=== PATIENT | male | born 1940 | race Caucasian/White ===

== ENCOUNTER 2017-09-30 11:50 | Emergency (ER) | payer MEDICARE ==
[2016-05-07 11:05] VITALS: BMI 28.8
[~2017-09-30 11:50] MED LIST: CARAFATE1 G PO; EXELON1 PATCH .1 TRANSDERM; FLOMAX0.4 MG PO; HYDROCODONE-APA1 TAB PO; LIPITOR10 MG PO; MOBIC7.5 MG PO; PAXIL20 MG PO; PHENERGAN25 M1 PO; PROTONIX40 MG PO; RESTORIL15 MG PO; SYNTHROID100 MCG PO
[2017-09-30 12:32] LABS: BASOPHILS 0.4 % (0-2); EOSINOPHILS 1.9 % (0-7); HEMATOCRIT 41.9 % (42.0-54.0); HEMOGLOBIN 14.4 g/dL (13.5-17.5); IMMATURE GRANULOCYTES 0.2 % (0-5); LYMPHOCYTES 22.8 % (15-50); MCH 32.3 pg (26.0-34.0); MCHC 34.4 g/dL (31.0-37.0); MCV 93.9 fL (80.0-100.0); MEAN PLATELET VOLUME 9.2 fL (7.4-10.4); MONOCYTES 9.3 % (2-11); NEUTROPHILS 65.4 % (40-80); RBC 4.46 10x6/uL (4.20-6.10); WBC 4.7 10x3/uL (4.8-10.8)
[2017-09-30 12:49] LABS: PLATELET COUNT 163 10x3/uL (130-400)
[2017-09-30 12:54] LABS: ALBUMIN 3.2 g/dL (3.4-5.0); ALKALINE PHOSPHATASE 66 U/L (46-116); ALT (SGPT) 33 U/L (10-68); BILIRUBIN - TOTAL 0.28 mg/dL (0.2-1.3); CALC OSMOLALITY 275 mosm/kg (275-300); CALCIUM 8.6 mg/dL (8.5-10.1); CARBON DIOXIDE 28.7 mmol/L (21.0-32.0); CHLORIDE - SERUM 104 mmol/L (98-107); CREATININE - SERUM 1.1 mg/dL (0.6-1.3); GLUCOSE 103 mg/dL (74-106); POTASSIUM - SERUM 4.7 mmol/L (3.5-5.1); PROTEIN - SERUM 6.7 g/dL (6.4-8.2); SODIUM 137 mmol/L (136-145); UREA NITROGEN 17 mg/dL (7-18); eGFR NON AFRICAN AMERICAN 69 mL/min (90-120)
[2017-09-30 13:01] LABS: CHOL - HDL RATIO 3.6 ratio (2.3-4.9); CHOLESTEROL, TOTAL 201 mg/dL (0-200); CREATINE KINASE 55 UL (21-232); HDL CHOLESTEROL 56 mg/dL (32-96); LDL CHOLESTEROL 100 mg/dL (0-100); LDL-HDL RATIO 1.8 ratio (1.5-3.5); TRIGLYCERIDE 228 mg/dL (30-200); TROPONIN-I < 0.017 ng/mL (0.000-0.060)
[2017-09-30 13:23] LABS: CKMB 0.7 U/L (0.0-3.6)
== END 2017-09-30 14:29 | disposition home or self-care (01) ==
LOC: D.ER 11:50
PROVIDERS: Emergency Medicine
DX: R68.84 Jaw pain (principal); F41.9 Anxiety disorder, unspecified; R00.1 Bradycardia, unspecified; I45.10 Unspecified right bundle-branch block

== ENCOUNTER 2017-10-06 06:21 | Outpatient (CLI) | payer MEDICARE ==
--- NOTE | ~2017-10-06 | HEMODYNAMI ---
PATIENT:NOVA RODRIGUEZ MEDICAL RECORD: [id number] : 42 LOCATION:[facility] ADMISSION DATE: 10/06/17 Generatedon:10/06/20179:03 Patient name: NOVA RODRIGUEZ Patient #: [id number] SSN: : 1940 Date of study: 10/06/2017 Page: Of Hemodynamic Procedure Report Patient Data Patient Demographics Procedure consent was obtained First Name: NOVA Gender: Male Last Name: MICHAEL : 1940 [facility] Initial: OSCAR Age: 77 year(s) Patient #: [id number] Race: Unknown Additional ID: [id number] Contact details Address: [address] [place] [address] State: [place] City: [place] Zip code: [address] Past Medical History Allergies: No known allergies Admission Admission Data Admission Date: 10/06/2017 Admission Time: 6:21 Procedure Procedure Types Cath Procedure Diagnostic Procedure LHC LHC w/Coronaries Miscellaneous Procedures Moderate Sedation up to 15 minutes Peripheral Cath Diagnostic Procedure Cath Peripheral Four Vessel Arteriogram Procedure Description Procedure Date Procedure Date: 10/06/2017 Procedure Start Time: 8:42 Procedure End Time: 9:02 Procedure Staff Name Function Ronny Carney MD Performing Physician Mena Hernandez RT Monitor Vahid Arthur RN Nurse Marciano Elias RT Scrub Procedure Data Cath Procedure Fluoroscopy Diagnostic fluoroscopy Total fluoroscopy Time: 3.6 time: 3.6 min min Diagnostic fluoroscopy Total fluoroscopy dose: 598 dose: 598 mGy mGy Contrast Material Contrast Material Type Amount (ml) Isovue 300 131 Entry Location Entry Primary Successful Side Size Upsize Upsize Entry Closure Succes sful Closure Location (Fr) 1 (Fr) 2 (Fr) Remarks Device Remarks Femoral Right 5 Fr Exoseal artery Estimated blood loss: 5 ml Diagnostic catheters Device Type Used For End Catheter Placement MULTIPACK JL 4.0 5Fr Left Coronary catheter Angiography MULTIPACK 3DRC 5Fr Right Coronary catheter Angiography MULTIPACK Pigtail 5 Fr LV Angiography catheter DIAGNOSTIC JB3 4Fr Cervical carotid catheter (331101) (common) arteriography Procedure Complications No complications Procedure Medications Medication Administration Route Dosage Oxygen NC 2 l/min Heparin Flush Bag added to field 2 bags (1000units/500ml NS) 0.9% NaCl I.V. 100 ml/hr Fentanyl I.V. 50 mcg Versed I.V. 1 mg Fentanyl I.V. 50 mcg Versed I.V. 1 mg Fentanyl I.V. 50 mcg Fentanyl I.V. 50 mcg Hemodynamics Rest Heart Rate: 52 (bpm) Pressure Samples Time Site Value (mmHg) Purpose Heart Use Rate(bpm) 8:44 AO 110/51(74) Snapshot 53 8:49 LV 115/2,8 EDP 55 8:50 AO 117/49(76) Pullback 55 8:50 LV 115/-10,6 Pullback 55 Gradients Valve Time Site 1 Site 2 Mean SEP/DFP Peak To Heart Use (mmHg) (sec/min) Peak Rate (mmHg) (bpm) Aortic 8:50 LV AO 0 13 0 55 115/-10,6 117/49(76) Calculations Valve P-P Mean Valve Index Valve Source Name Gradient Area Flow (cm2) Aortic 0 0 0 0 Snapshots Pre Cath Intra NCS Post Cath Vital Signs Time Heart Resp SPO2 etCO2 NIBP (mmHg) Rhythm Pain Sedation Rate (ipm) (%) (mmHg) Status Level (bpm) 8:25:46 54 19 96 0 165/74(124) NSR 0 (11) 10(A) , No pain 8:30:07 51 16 99 35.7 146/72(125) NSR 0 (11) 10(A) , No pain 8:35:12 50 15 97 37.2 131/68(112) NSR 0 (11) 10(A) , No pain 8:40:25 51 16 97 19.3 117/65(84) NSR 0 (11) 10(A) , No pain 8:44:35 53 16 96 16.4 121/66(92) NSR 0 (11) 10(A) , No pain 8:48:47 54 16 96 13.4 120/66(97) NSR 0 (11) 10(A) , No pain 8:52:59 56 16 95 0 122/65(101) NSR 0 (11) 10(A) , No pain 8:57:13 60 17 95 16.4 112/62(84) NSR 0 (11) 10(A) , No pain 9:01:21 58 16 96 17.9 113/50(87) NSR 0 (11) 10(A) , No pain Medications Time Medication Route Dose Verified Delivered Reason Notes Effect iveness by by 8:26:55 Oxygen NC 2 Ronny Vahid Per l/min Rommel Arthur RN physician 8:27:02 Heparin Flush added 2 Ronny Vahid used for Bag to bags Rommel Arthur RN procedure (1000units/500ml field NS) 8:27:11 0.9% NaCl I.V. 100 Ronny Vahid Per ml/hr Rommel Arthur RN physician 8:42:02 Fentanyl I.V. 50 Ronny Vahid for mcg Rommel Arthur RN sedation 8:42:08 Versed I.V. 1 mg Ronny Vahid for Rommel Arthur RN sedation 8:44:40 Fentanyl I.V. 50 Ronny Vahid for mcg Rommel Arthur RN sedation 8:44:46 Versed I.V. 1 mg Ronny Vahid for Rommel Arthur RN sedation 8:47:49 Fentanyl I.V. 50 Ronny Vahid for mcg Rommel Arthur RN sedation 8:50:34 Fentanyl I.V. 50 Ronny Vahid for mcg Rommel Arthur RN sedation Procedure Log Time Note 7:55:22 Time tracking: Regular hours 7:55:26 Plan of Care:Hemodynamics will remain stable., Cardiac rhythm will remain stable., Comfort level will be maintained., Respiratory function will remain adequate., Patient/ family verbilizes understanding of procedure., Procedure tolerated without complication., Recovers from procedure without complications.. 8:03:27 Vahid Arthur RN sent for patient. Start room use. 8:18:44 Patient received from Pre/Post Procedure Room to CCL 2 Alert and oriented. Tansferred to table in Supine position. 8:18:44 Warm blankets applied, and adrienne hugger turned on for patient comfort. 8:18:45 Correct patient and procedure confirmed by team. 8:18:46 Signed procedure consent form obtained from patient. 8:18:47 ECG and BP/O2 sat monitors applied to patient. 8:18:48 Full Disclosure recording started 8:24:30 Vital chart was started 8:24:32 Baseline sample Acquired. 8:26:55 Oxygen 2 l/min NC was administered by Vahid Arthur RN; Per physician; 8:27:02 Heparin Flush Bag (1000units/500ml NS) 2 bags added to field was administered by Vahid Arthur RN; used for procedure; 8:27:11 0.9% NaCl 100 ml/hr I.V. was administered by Vahid Arthur RN; Per physician; 8:27:47 Rhythm: sinus bradycardia 8:28:01 H&P Date Dictated: 10/04/2017 Within 30 days and on chart., H&P Addendum completed by physician on day of procedure. (MUST COMPLETE FOR ALL OUTPATIENTS). 8:28:02 Pre-procedure instructions explained to patient. 8:28:03 Pre-op teaching completed and patient verbalized understanding. 8:28:04 Family in waiting room. 8:28:05 Patient NPO since Midnight. 8:28:21 Patient allergic to No known allergies 8:28:23 Is the patient allergic to Iodine/contrast media? No. 8:28:27 Is patient on blood thinner?No 8:28:30 Patient diabetic? No. 8:28:41 Previous problem with sedation/anesthesia? No ? 8:28:42 Snore? Yes 8:28:43 Sleep apnea? No 8:28:43 Deviated septum? No 8:28:44 Opens mouth fully? Yes 8:28:45 Sticks out tongue? Yes 8:28:47 Airway obstruction? No ? 8:28:48 Dentures? No ? 8:28:52 Pre procedure: right dorsailis pedis pulse 2+ Normal; easily identifiable; not easily obliterated 8:28:54 Patient pain scale 0/10 ?. 8:29:07 IV patent on arrival in left hand with 0.9% NaCl at [facility]. 8:29:12 Lab results completed and on chart. 8:29:16 Right groin area was prepped with chlora-prep and draped in sterile fashion 8:29:17 Alarms reviewed by R. N. 8:29:17 Sharps counted by scrub and verified by R.N. 8:29:21 Use device set Femoral Dx 8:29:22 ACIST Syringe (85945) opened to sterile field. 8:29:22 Bag Decanter (2002S) opened to sterile field. 8:29:23 Medline Cath Pack ([id number]) opened to sterile field. 8:29:23 SHEATH 5FR [place] (NXT554) opened to sterile field. 8:29:24 DIAGNOSTIC WIRE .035 260cm J wire (599404) opened to sterile field. 8:29:25 ACIST Hand Control (34298) opened to sterile field. 8:29:25 ACIST Manifold (27467) opened to sterile field. 8:29:26 DIAGNOSTIC Multipack 5Fr catheter set ([id number]) opened to sterile field. 8:29:27 Tegaderm 4 x 4 (1626W) opened to sterile field. 8:29:27 PERCUTANEOUS ENTRY 19GA needle opened to sterile field. 8:37:15 Final Timeout: patient, procedure, and site verified with staff and physician. All members of the team are in agreement. 8:37:17 Right groin site verified by team. 8:37:20 Physical assessment completed. ASA score P 2 - A patient with mild systemic disease as per Ronny Carney MD. 8:37:22 Sedation plan: IV Moderate Sedation Medication:Versed, Fentanyl 8:37:55 Procedure type changed to Cath procedure, Diagnostic procedure, LHC, LHC w/Coronaries, Miscellaneous Procedures, Moderate Sedation up to 15 minutes, Peripheral Cath Diagnostic Procedure, Cath Peripheral, Four Vessel Arteriogram 8:42:02 Fentanyl 50 mcg I.V. was administered by Vahid Arthur RN; for sedation; 8:42:08 Versed 1 mg I.V. was administered by Vahid Arthur RN; for sedation; 8:42:08 Procedure started. 8:42:10 Local anesthetic to right femoral artery with Lidocaine 2% by Ronny Carney MD.INITIAL ACCESS ONLY 8:43:07 A 5 Fr sheath was inserted into the Right Femoral artery 8:43:56 A MULTIPACK JL 4.0 5Fr catheter was advanced over the wire and used for Left Coronary Angiography. 8:44:40 Fentanyl 50 mcg I.V. was administered by Vahid Arthur RN; for sedation; 8:44:46 Versed 1 mg I.V. was administered by Vahid Arthur RN; for sedation; 8:45:33 Catheter removed. 8:46:57 A MULTIPACK 3DRC 5Fr catheter was advanced over the wire and used for Right Coronary Angiography. 8:47:46 Catheter removed. 8:47:49 Fentanyl 50 mcg I.V. was administered by Vahid Arthur RN; for sedation; 8:48:50 A MULTIPACK Pigtail 5 Fr catheter was advanced over the wire and used for LV Angiography. 8:49:37 LV gram done using SOLOMON 8:49:37 LV hemodynamics recorded. 8:49:42 Injector settings: Ml/sec: 5, Volume: 15, 8:49:46 EF : 50 % 8:50:04 Catheter removed. 8:50:34 Fentanyl 50 mcg I.V. was administered by Vahid Arthur RN; for sedation; 8:50:43 A DIAGNOSTIC JB3 4Fr catheter ([id number]) was advanced over the wire and used for Cervical carotid (common) arteriography. 8:56:53 Catheter removed. 8:57:04 Sheath removed intact; hemostasis achieved with Exoseal to the Right Femoral artery. 8:57:08 Procedure ended.(Physican Out) 8:57:16 Fluoroscopy time 03.60 minutes. 8:57:19 Flurop Dose total: 598 8:57:19 Fluoroscopy dose: 598 mGy 8:57:22 Contrast amount:Isovue 300 131ml. 8:57:23 Sharps counted by scrub and verified by R.N. 8:57:41 EXOSEAL 5Fr (EX500) opened to sterile field. 8:58:50 Insertion/operative site no bleeding no hematoma. 8:58:52 Post-op/insertion site Right Femoral artery dressed using a 4 x 4 and Tegaderm. 8:58:55 Post right femoral artery:stable, clean and dry 8:58:57 Post Procedure Pulses reassessed and unchanged 8:59:04 Post-procedure physical assessment completed. ASA score P 2 - A patient with mild systemic disease as per Ronny Carney MD. 8:59:06 Post procedure rhythm: unchanged. 8:59:08 Estimated blood loss: 5 ml 8:59:09 Post procedure instruction explained to patient.Patient verbalizes understanding. 8:59:10 Patient needs reinforcement of post procedure teaching. 8:59:14 Procedure Complication : No complications 9:00:22 Procedure and supply charges have been captured, reviewed, submitted and are correct. 9:00:55 See physician's report for complete and final results. 9:02:36 Vital chart was stopped 9:02:47 Report given to Pre/Post Procedure Room. 9:02:50 Patient transfered to Pre/Post Procedure Room with Stretcher. 9:02:51 Procedure ended. 9:02:51 Full Disclosure recording stopped 9:02:56 End room use (Document Last) Device Usage Item Name Manufacture Quantity Catalog Hospital Part Current Minimal Lot# / Number Charge Number Stock Stock Serial# Code ACIST Acist 1 03773 025062 173645 610715 20 Syringe Medical (73608) Systems Inc Bag Decanter Microtek 1 2001S 460619 63190 401747 5 (2001S) Medical Inc. Medline Cath Cardinal 1 [id number] 827815 06026 142144 5 Pack Health ([id number]) SHEATH 5FR Terumo 1 MDC326 406533 748759 150983 40 [place] (XPD307) DIAGNOSTIC [place] 1 023112 074489 181758 133190 30 WIRE .035 260cm J wire (363675) ACIST Hand Acist 1 05174 242555 989044 670746 5 Control Medical (98612) Systems Inc ACIST Acist 1 23145 027904 917932 335819 5 Manifold Medical (82566) Systems Inc DIAGNOSTIC Cardinal 1 UJ4234 804881 03221 862734 30 Multipack Health 5Fr catheter set (OB1730) Tegaderm 4 x 3M 1 1626W 442946 991837 011287 5 4 (1626W) PERCUTANEOUS Cook Medical 1 Z19811 129511 190657 5 ENTRY 19GA needle MULTIPACK JL Cardinal 1 466651 5 4.0 5Fr Health catheter MULTIPACK Cardinal 1 910565 5 3DRC 5Fr Health catheter MULTIPACK Cardinal 1 931401 5 Pigtail 5 Fr Health catheter DIAGNOSTIC Cardinal 1 532-747 818153 953209 893457 5 JB3 4Fr Health catheter (418862) EXOSEAL 5Fr Cardinal 1 EX500 533915 603703 988753 10 (EX500) Health Signature Audit [place] Stage Time Signature Unsigned Intra-Procedure 10/06/2017 Mena 9:03:32 AM Counts RT(R) Signatures Monitor : Mena Signature : Counts RT Date : Time : [address] [place] [address]
[2017-10-06] MEDS ORDERED: PROTONIX40 MG PO (07:03)
[2017-10-06 07:10] VITALS: BP 162/57; BMI 27.8
[2017-10-06 07:40] LABS: BASOPHILS 0.7 % (0-2); EOSINOPHILS 2.9 % (0-7); HEMATOCRIT 43.5 % (42.0-54.0); IMMATURE GRANULOCYTES 0.5 % (0-5); LYMPHOCYTES 39.9 % (15-50); MCH 32.3 pg (26.0-34.0); MCHC 34.5 g/dL (31.0-37.0); MCV 93.8 fL (80.0-100.0); MEAN PLATELET VOLUME 9.6 fL (7.4-10.4); MONOCYTES 11.4 % (2-11); NEUTROPHILS 44.6 % (40-80); PLATELET COUNT 135 10x3/uL (130-400); RBC 4.64 10x6/uL (4.20-6.10); RDW 12.9 % (11.5-14.5); WBC 4.1 10x3/uL (4.8-10.8)
[2017-10-06 07:54] LABS: CALC OSMOLALITY 276 mosm/kg (275-300); CALCIUM 8.3 mg/dL (8.5-10.1); CARBON DIOXIDE 26.3 mmol/L (21.0-32.0); CHLORIDE - SERUM 105 mmol/L (98-107); GLUCOSE 84 mg/dL (74-106); POTASSIUM - SERUM 3.9 mmol/L (3.5-5.1); SODIUM 139 mmol/L (136-145); UREA NITROGEN 13 mg/dL (7-18); eGFR NON AFRICAN AMERICAN 77 mL/min (90-120)
[2017-10-24] MEDS ORDERED: VOLTAREN75 MG PO (09:46)
[2017-10-24] MEDS ORDERED: MELATONIN10 M1 PO (09:46)
[2017-10-24] MEDS ORDERED: ASPIRIN EC325 M1 PO (09:46)
== END 2017-10-06 11:30 | disposition home or self-care (01) ==
LOC: D.CATH 06:21
PROVIDERS: Internal Medicine Cardiovascular Disease
DX: I25.10 Atherosclerotic heart disease of native coronary artery without angina pectoris (principal); I65.29 Occlusion and stenosis of unspecified carotid artery; Z01.812 Encounter for preprocedural laboratory examination

== ENCOUNTER → 2017-10-11 13:54 | Outpatient (CLI) | payer MEDICARE ==
[2017-10-06 07:10] VITALS: BMI 27.8
[~2017-10-11 13:54] MED LIST changes: +ASPIRIN EC325 M1 PO; +MELATONIN10 M1 PO; +ULTRAM50 MG PO; +VOLTAREN75 MG PO
== END | disposition home or self-care (01) ==
LOC: D.CT 13:54
DX: I65.23 Occlusion and stenosis of bilateral carotid arteries (principal); R55 Syncope and collapse

== ENCOUNTER 2017-10-25 05:00 | Inpatient (IN) | payer MEDICARE ==
[2017-10-24 10:43] LABS: APPEARANCE CLEAR (CLEAR); BILIRUBIN NEGATIVE (NEGATIVE); COLOR YELLOW (YELLOW); GLUCOSE NEGATIVE (NEGATIVE); KETONE NEGATIVE (NEGATIVE); NITRITE NEGATIVE (NEGATIVE); PROTEIN NEGATIVE (NEGATIVE); UROBILINOGEN NORMAL (NORMAL)
[2017-10-24 10:59] LABS: APTT 26.4 SECONDS (22.8-39.4); INR 0.99 (0.85-1.17); PROTIME 12.7 SECONDS (11.6-15.0)
[2017-10-24 11:06] LABS: ALBUMIN 3.5 g/dL (3.4-5.0); ALKALINE PHOSPHATASE 63 U/L (46-116); ALT (SGPT) 24 U/L (10-68); CALC OSMOLALITY 278 mosm/kg (275-300); CALCIUM 8.5 mg/dL (8.5-10.1); CHLORIDE - SERUM 106 mmol/L (98-107); GLUCOSE 84 mg/dL (74-106); POTASSIUM - SERUM 3.8 mmol/L (3.5-5.1); PROTEIN - SERUM 7.3 g/dL (6.4-8.2); SODIUM 140 mmol/L (136-145); UREA NITROGEN 14 mg/dL (7-18); eGFR NON AFRICAN AMERICAN 77 mL/min (90-120)
[~2017-10-25] VITALS: Ht 175.3 cm; Wt 85.3 kg
[2017-10-25] VITALS (34 sets, daily range): BP systolic 98–161; BP diastolic 40–852; BMI 27.8
--- NOTE | ~2017-10-25 | DS ---
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 PROCEDURE PERFORMED: Left carotid excision and advancement transposition. HOSPITAL COURSE: The patient was a.m. admission after previous cardiac catheterization had revealed significant stenosis due to a redundant left common carotid artery with kinking as well as a left subclavian artery. The patient underwent a procedure with resection and primary reanastomosis. Postoperatively, condition was good. Blood pressure well controlled. He was ambulatory. Preoperative symptoms had resolved including provocative maneuver in the hospital, but without significant straining. He is discharged home. Follow up in 1 week. He understands warning signs for which to seek immediate medical attention. Medications as listed in the chart. TRANSINT:[id number] Voice Confirmation ID: [id number] DOCUMENT ID: [id number] KENNEDI VERGARA MD at 1418 CC: [id number] DICTATION DATE: 11/08/17 1439 CORPORATE RECYCLING MANAGER: 11/08/17 1524 DIS IN 10/26/17 [facility] [address] [place] [address]
--- NOTE | ~2017-10-25 | HP ---
PATIENT: NOVA RODRIGUEZ MEDICAL RECORD: [id number] ACCOUNT: [id number] LOCATION:[facility].CV08 : 42 ADMISSION DATE: 10/25/17 HISTORY AND PHYSICAL EXAMINATION NOVA Apodaca (77yo, M) ID# [id number]. Date/Time10/18/2017 02:83WOPVD94/25/1Service Dept.NP_[facility] ClinicProviderKENNEDI VERGARA MDInsuranceMed Primary: [place] ([place]) Insurance # : [id number] Referring Provider Name : JANETH WILKINSON Employer Name : UNKNOWN Med Secondary: LIFE INSURANCE (MEDICARE SUPPLEMENT) Insurance # : [id number] Employer Name : UNKNOWN Prescription: DSTPSDIR - Member is eligible. Chief Complaint Syncope Patient's Care Team Referring Provider (): JANETH WILKINSON: [address] [place] [id number], , Patient's Pharmacies [id number] ([place]): [address] [place] [address], , Vitals 10/18/2017 02:33 pm BP:138/58 R armHR:68Ht:5 ft 8 inWt:188 lbs BMI:28.6Allergies Reviewed Allergies NKDASome allergies listed in Document: #[id number] could not be added to this patient's chart. Please review this document and add these allergies to the patient's chart manually as needed.Medications Reviewed Medications atorvastatin 10 mg tzzsya01/20/17 filledArg[facility] Systemscitalopram 20 mg dkpxyu06/01/17 filled[facility] Captimodiclofenac sodium 75 mg tablet,delayed /23/18 filledArgus Health SystemsExelon Patch 9.5 mg/24 hr bxiadexyfvj58/25/18 filledArg[facility] Health SystemsHYDROcodone 10 mg-acetaminophen 325 mg hojyek40/12/16 filledArg[facility] Health SystemslevoFLOXacin 500 mg /12/16 filledArg[facility] Systemslevothyroxine 100 mcg mpeins07/05/18 filledArg[facility] Health Systemsmeclizine 25 mg sohfdm51/27/18 filled[facility] DNA Responsemeloxicam 15 mg fiupje31/05/18 [facility] Responseofloxacin 0.3 % eye drops01/28/17 [facility] DNA Responsepantoprazole 40 mg tablet,delayed kxrilhv21/05/18 [facility] DNA ResponsePARoxetine 20 mg /19/16 [facility] DNA ResponseprednisoLONE acetate 1 % eye drops,blxrxpplke40/23/17 [facility] DNA Responsepromethazine 25 mg ivhoun44/30/16 [facility] DNA Responsesucralfate 1 gram tablet Take 1 tablet(s) every day by oral route.04/21/16 Shelbi Jain MDtamsulosin 0.4 mg waslixl22/04/18 [facility] HelloNature [facility] Healtchcare Centertemazepam 15 mg hpjomxx19/05/18 [facility] DNA Response Some medications listed in Document: #[id number] could not be added to this patient's chart. Please review this document and add these medications to the patient's chart manually as needed. Problems Reviewed Problems Syncope - Onset: 10/18/2017 Bradycardia - Onset: 10/18/2017 Dizziness - Onset: 10/18/2017 HISTORY AND PHYSICAL [id number] NOVA RODRIGUEZ Disorder of thyroid gland Gastroesophageal reflux disease without esophagitis Family History Reviewed Family History Father- ArthritisMother- Cerebrovascular accident - Coronary arteriosclerosisSocial History Reviewed Social History Cardiology Family history of heart disease?: Y (Notes: FATHER-[place], BROTHER-[place]) Smoking Status: Never smoker High Cholesterol: Y High blood pressure: Y Overweight: N Obese: N Diabetes: N General stress level: Medium D iet: Regular Occupation: RETIRED Marital status: Surgical History Reviewed Surgical History Other - 05/07/2016 - TIF Esophagogastroduodenoscopy (surg) - 04/23/2016 Past Medical History Reviewed Past Medical History GERD: Y Thyroid Problems: Y Documents for Discussion N/A Screening None recorded. HPI Syncope/Dizziness Reported by patient. Quality: lightheaded Severity: syncope Duration: lasts hours; started 4weeks ago; has occured 1 times Context: abrupt onset without warning Notes: STATES BENDING OVER WORSENS DIZZINESS. the patient reports that during exercises especially when leaning forward he develops near syncope. He had significant tortuous carotids and underwent CTA as well as carotid arteriogram which revealed a severe kink in the proximal left common carotid artery. ROS Patient reports no fever, no night sweats, no significant weight gain, no significant weight loss, and no exercise intolerance. He reports no dry eyes, no irritation, and no vision change. He reports no difficulty hearing and no ear pain. He reports no frequent nosebleeds and no nose/sinus problems. He reports no sore throat, no bleeding gums, no snoring, no dry mouth, no mouth ulcers, no oral abnormalities, and no teeth problems. He reports n o jugular vein distension and no swollen glands. He reports no chest pain, no arm pain on exertion, no shortness of breath when walking, no shortness of breath when lying down, no palpitations, and no known heart murmur. He reports no cough, no wheezing, n o shortness of breath, and HISTORY AND PHYSICAL [id number] MICHAELNOVA MOORE no coughing up blood. He reports no abdominal pain, no vomiting, normal appetite, no diarrhea, not vomiting blood, no nausea, and no constipation. He reports no incontinence, no difficulty urinating, no hematuria, and no increase d frequency. He reports no muscle aches, no muscle weakness, no arthralgias/joint pain, no back pain, and no swelling in the extremities. He reports no abnormal mole, no jaundice, and no rashes. He reports no loss of consciousness, no weakness, no numbness , no seizures, no dizziness, and no headaches. He reports no depression, no sleep disturbances, feeling safe in relationship, and no alcohol abuse. He reports no fatigue. He reports no swollen glands and no bruising. He reports no runny nose, no sinus pres sure, no itching, no hives, and no frequent sneezing. ROS as noted in the HPI Physical Exam Patient is a 77-year-old male. Constitutional: General Appearance well nourished and developed and healthy-appearing. Level of Distress NAD. Ambulation ambulating normally. Cardiovascular: Apical Impulse not displaced or no thrill. Heart Auscultation normal s1 and s2; no murmurs, rubs, or gallops; and RRR. Arterial Pulses no abdominal aorta bruits, femoral bruits, or popliteal bruits and 2+ bilateral, carotid 2+ bi lateral, femoral 2+ bilateral, popliteal 2+ bilateral, and dorsalis pedis 2+ bilateral. Edema no edema or varicosities. Lungs: Repiratory Effort no dyspnea. Percussion no hyperresonance or dullness or flatness. Auscultation no wheezing, rhonchi, or rales / crackles and breathing sounds normal, good air movement, and CTA except as noted. Abdomen: Bowl Sounds normal. Inspection and Palpation no tenderness, guarding, masses, or rebound tenderness and soft and non-distended. Liver non-tender and no hepatomegaly. Spleen non-tender and no splenomegaly. Hernia none palpable. Musculoskeletal System: Gait And Stance normal gait and stance. Digits and Nails normal nails and no cyanosis. Neurologic: Cranial Nerves grossly intact. Reflexes DTRs 2+ bilaterally throughout. Sensation grossly intact. Lymph Nodes: Lymph Nodes no cervical LAD, supraclavicular LAD, axillary LAD, or inguinal LAD. Eyes: Lids and Conjunctivae no discharge or pallor and non-injected. Pupils PERRLA. Cornea grossly intact. EOM EOMI. Lens clear. Sclerae non-icteric. Neck: Neck no masses, enlarged lymph nodes, or carotid bruits and supple and trachea midline. Thyroid no enlargement or nodules and non-tender. Skin: Inspection and Palpation no rash, lesions, ulcers, jaundice, or abnormal nevi. Assessment / Plan the severe stenosis of the proximal left common carotid artery is likely related to this patient's syncope especially in light of subclavian stenosis on the same side. The patient reports that all his life he is done next ridges included roshni aning using weights but I'm not certain this has played a role in the redundancy of the arteries. This should be amenable to resection of the redundant portion of common carotid HISTORY AND PHYSICAL [id number] NOVA RODRIGUEZ artery kqmgeqe-zo-ijo advancement and anastomosis. 1. Carotid artery stenosis - Left I65.22: Occlusion and stenosis of left carotid artery 2. Subclavian artery stenosis I70.8: Atherosclerosis of other arteries Discussion Notes discussed the rationale for surgery, the alternatives, the benefits, the risks . We also discussed the possibility this will not relieve his symptoms. We discussed the alternatives I do not believe that stenting in this vessel would be possible due to the severe tortuosity of the vessel KENNEDI VERGARA MD at 3815 CC: [id number] DICTATION DATE: 10/18/17 1430 DISTRIBUTION ASSOCIATE: DM 10/21/17 1028 DIS IN 10/26/17 [facility] [address] [place] [id number]
--- NOTE | ~2017-10-25 | OP ---
PATIENT NAME: NOVA RODRIGUEZ MEDICAL RECORD: [id number] :41 LOCATION:[facility] [id number] ADMISSION DATE:10/25/17 SURGEON: MATIAS VERGARA MD DATE OF OPERATION: 10/25/2017 SURGEON: Matias Vegrara MD PUBLIC ADDRESS SYSTEM INSTALLER: Sera Dempsey MD PROCEDURE PERFORMED: Left common carotid artery resection and advancement with primary anastomosis. 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 ANESTHESIA: General endotracheal anesthesia. ESTIMATED BLOOD LOSS: 10 mL. COMPLICATIONS: None. SPECIMENS: None. A small portion of the artery was disposed. CONDITION: Stable. DISPOSITION: CV ICU. OPERATIVE FINDINGS: 1. The common carotid artery low in the neck was exposed and dissected behind the clavicle down into the chest removing the redundant length of common carotid artery and then dissecting distally almost up to the carotid bulb taking care to stay in the arterial plane. The vagus nerve was clearly identified and the jugular vein was retracted medially. 2. Resection of about 2 cm of normal artery with no plaque primary end-to-end anastomosis. OPERATIVE INDICATIONS: Syncope and history of severe carotid kink, also subclavian proximally has a significant redundancy that likely has a kink as well, but no arm symptoms. OPERATIVE PROCEDURE IN DETAIL: The patient was brought to the operating suite. General anesthesia was obtained. A transverse incision was made low in the neck and taken down. Jugular was retracted medially. Care was taken to enter the periadventitial plane stay free of the nerve, which was identified. The artery was straightened out by dissecting down behind the clavicle and heparin was then given. Distal dissection was performed up to about the level of the carotid bulb. Inflow was clamped as well as the distal artery. It was resected and anastomosed end-to-end with 3 separate sutures, each around 120 degrees of the artery. After the anastomosis was completed, but prior to tying the anastomosis, backbleeding was allowed as well as inflow was flushed and the anastomosis was completed. Hemostasis was assured. A drain was placed. Thorough irrigation was undertaken. The muscle layers were reapproximated as OPERATIVE REPORT [id number] NOVA RODRIGUEZ well as the skin and then the patient was stable to the CV ICU. TRANSINT:[id number] Voice Confirmation ID: [id number] DOCUMENT ID: [id number] MATIAS VERGARA MD at 1044 CC: ANYA TALAVERA M.D. [id number] DICTATION DATE: 10/25/17 1559 SCRAP DROP ENGINEER: 10/25/17 1638 DIS IN 10/26/17 [facility] [address] [id number]
[~2017-10-25 05:00] MED LIST changes: -ULTRAM50 MG PO
[2017-10-25 05:28] LABS: HEMATOCRIT 48.4 % (42.0-54.0); HEMOGLOBIN 15.5 g/dL (13.5-17.5); MCH 31.8 pg (26.0-34.0); MCV 99.4 fL (80.0-100.0); MEAN PLATELET VOLUME 10.1 fL (7.4-10.4); RBC 4.87 10x6/uL (4.20-6.10); RDW 14.1 % (11.5-14.5); WBC 4.7 10x3/uL (4.8-10.8)
[2017-10-26] VITALS (14 sets, daily range): BP systolic 94–166; BP diastolic 50–95; Ht 175.3 cm; Wt 85.3 kg
[2017-10-26] MEDS ORDERED: ULTRAM50 MG PO (09:32)
== END 2017-10-26 10:20 | disposition home or self-care (01) | DRG 39 ==
LOC: D.SDCHOLD 05:00 → D.CVICU 05:00 → D.SDCHOLD 07:30 → D.CVICU 08:44
PROVIDERS: Thoracic Surgery (Cardiothoracic Vascular Surgery)
PROC: 03B Upper Arteries, Excision (ICD-10-PCS; principal; 2017-10-25 07:30)
DX: I65.22 Occlusion and stenosis of left carotid artery (principal); I77.1 Stricture of artery

== ENCOUNTER 2018-11-16 07:45 | Day surgery (SDC) | payer MEDICARE, OTHER ==
[~2018-11-16] VITALS: Ht 175.3 cm; Wt 82.3 kg
[~2018-11-16 07:45] MED LIST changes: +ULTRAM50 MG PO
[2018-11-16 08:11] LABS: POTASSIUM - SERUM 4.3 mmol/L (3.5-5.1)
[2018-11-16 08:16] LABS: HEMOGLOBIN 14.2 g/dL (13.5-17.5); MCH 31.3 pg (26.0-34.0); MCHC 33.8 g/dL (31.0-37.0); MCV 92.7 fL (80.0-100.0); MEAN PLATELET VOLUME 9.2 fL (7.4-10.4); RBC 4.53 10x6/uL (4.20-6.10); RDW 12.6 % (11.5-14.5); WBC 3.7 10x3/uL (4.8-10.8)
[2018-11-16 08:47] LABS: CALC OSMOLALITY 288 mosm/kg (275-300); CALCIUM 8.1 mg/dL (8.5-10.1); CARBON DIOXIDE 28.6 mmol/L (21.0-32.0); CHLORIDE - SERUM 111 mmol/L (98-107); CREATININE - SERUM 0.9 mg/dL (0.6-1.3); GLUCOSE 99 mg/dL (74-106); SODIUM 145 mmol/L (136-145); UREA NITROGEN 13 mg/dL (7-18); eGFR NON AFRICAN AMERICAN 87 mL/min (90-120)
[2018-11-16 08:48] VITALS: BP 173/63; Ht 175.3 cm; Wt 82.3 kg
--- NOTE | 2018-11-17 14:04 | OP ---
PATIENT NAME: NOVA RODRIGUEZ MEDICAL RECORD: [id number] :41 LOCATION:[facility] ADMISSION DATE: SURGEON: TUNG BARAHONA MD DATE OF OPERATION: 11/16/2018 PREOPERATIVE DIAGNOSES: 1. Gastroesophageal reflux disease. 2. Thyroid disease. 3. Bradycardia. 4. Carotid artery stenosis. POSTOPERATIVE DIAGNOSES: 1. Gastroesophageal reflux disease. 2. Thyroid disease. 3. Bradycardia. 4. Carotid artery stenosis. PROCEDURE: EGD with biopsy. SURGEON: Tung Barahona MD REPORT OF PROCEDURE: An Olympus endoscope was advanced through the mouth and esophagus. We passed easily through the GE junction into the stomach. Once we got through the pylorus, we entered the second portion of the duodenum. 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 I tried to penetrate into this, but there was a large amount of food contents that were present. We removed some of this, but was never able to completely visualize the area well, did not want to force any injuries, so I went ahead and pulled back the scope and took a biopsy of the antrum of the stomach. There was noted to be some areas of irritation, but no signs of any ulcerations or masses. As we retroflexed the scope, we could see remnants of the patient's previous TIF procedure. There were some cross bars that were still visible and the tip appeared to be still intact to some degree. There was some loosening to the GE junction and there appeared to be a small hiatal hernia. As we pulled back, we could see the GE junction was at about 40 cm from the teeth. There were some mild inflammatory changes present, but no signs of any deep ulcerations of the GE junction. A biopsy was performed at the GE junction. As we pulled back again, I saw no evidence of any masses or lesions. There was no sign of any strictures or stenoses throughout the esophagus. There were some ulcerations on the mid esophagus that did not have evidence of any bleeding. At this point, the insufflation and the scope were removed. COMPLICATIONS: None. CONDITION: Stable. ANESTHESIA: TIVA. BLOOD LOSS: Minimal. TRANSINT:[id number] Voice Confirmation ID: [id number] DOCUMENT ID: [id number] OPERATIVE REPORT [id number] NOVA RODRIGUEZ TUNG BARAHONA MD at 1404 CC: [id number] DICTATION DATE: 11/16/18 1150 DIRECTOR OF LITIGATION: 11/16/18 1244 DEP SD 11/16/18 [id number] [place] [address]
== END 2018-11-16 12:45 | disposition home or self-care (01) ==
LOC: D.OPS 07:45
PROVIDERS: Anesthesiology; ATTEND Surgery
DX: K21.9 Gastro-esophageal reflux disease without esophagitis (principal); E07.9 Disorder of thyroid, unspecified; R00.1 Bradycardia, unspecified; I65.29 Occlusion and stenosis of unspecified carotid artery; Z01.812 Encounter for preprocedural laboratory examination

== ENCOUNTER → 2018-12-07 10:44 | Day surgery (SDC) | payer MEDICARE, OTHER ==
[2018-11-16 08:48] VITALS: BMI 26.8
== END | disposition home or self-care (01) ==
LOC: D.OPS 11-30 11:30
PROVIDERS: ATTEND Surgery
DX: K21.9 Gastro-esophageal reflux disease without esophagitis (principal)

== ENCOUNTER → 2019-05-17 09:01 | Outpatient (CLI) | payer MEDICARE, OTHER ==
[2018-11-16 08:48] VITALS: BMI 26.8
== END | disposition home or self-care (01) ==
LOC: D.US 09:01
PROVIDERS: ATTEND Internal Medicine Cardiovascular Disease
DX: I65.23 Occlusion and stenosis of bilateral carotid arteries (principal)

== ENCOUNTER → 2019-05-24 13:15 | Outpatient (CLI) | payer MEDICARE, OTHER ==
[2018-11-16 08:48] VITALS: BMI 26.8
== END | disposition home or self-care (01) ==
LOC: D.CT 13:15
PROVIDERS: ATTEND Internal Medicine Cardiovascular Disease
DX: R55 Syncope and collapse (principal); R90.89 Other abnormal findings on diagnostic imaging of central nervous system

== ENCOUNTER 2019-12-18 11:15 | Outpatient (CLI) | payer MEDICARE, OTHER ==
[~2019-12-18] VITALS: Ht 175.3 cm; Wt 81.5 kg
--- NOTE | ~2019-12-18 | HEMODYNAMI ---
PATIENT:NOVA RODRIGUEZ MEDICAL RECORD: [id number] : 41 LOCATION:[facility] ADMISSION DATE: 12/18/19 Generatedon:12/18/201913:13 Patient name: NOVA RODRIGUEZ Patient #: [id number] SSN: [id number] : 1940 Date of study: 12/18/2019 Page: Of Hemodynamic Procedure Report Patient Data Patient Demographics Procedure consent was obtained First Name: NOVA Gender: Male Last Name: MICHAEL : 1940 [facility] Initial: OSCAR Age: 79 year(s) Patient #: [id number] Race: SSN: [id number] Additional ID: [id number] Contact details [address]: [address] [place] [address] State: [place] City: [place] Zip code: [address] Past Medical History Allergies: No known allergies Admission Admission Data Admission Date: 12/18/2019 Admission Time: 11:15 Arrival Date: 12/18/2019 Arrival Time: 0:00 Height (in.): 68.9 BSA: 1.98 (m2) Height (cm.): 175 BMI: 26.78 (kg/m2) Weight (lbs.): 180.78 Weight (kg.): 82 Procedure Procedure Types Cath Procedure Diagnostic Procedure PPM/ICD Loop Recorder Implant Sedation Charges Moderate Sedation up to 15 minutes Procedure Description Procedure Date Procedure Date: 12/18/2019 Procedure Start Time: 12:55 Procedure End Time: 13:10 Procedure Staff Name Function Colton Benton MD Performing Physician Shannan Barragan RT Monitor Janice Sampson RN Nurse Chanell Hollins RT Scrub Indication Bradycardia Procedure Data Cath Procedure Estimated blood loss: 0 ml Procedure Complications No complications Procedure Medications Medication Administration Route Dosage 0.9% NaCl I.V. 100 ml/hr Oxygen etCO2 Nasal cannula 2 l/min Lidocaine 2% added to field 20 Versed I.V. 2 mg Fentanyl I.V. 50 mcg Versed I.V. 2 mg Fentanyl I.V. 50 mcg Hemodynamics Rest BSA: 1.98 (m2) O2 Consumption: Estimated: 206.9 (ml/min) O2 Consumption indexed: Estimated:104.49 (ml/min/m) Heart Rate: 44 (bpm) Snapshots Pre Cath Intra NCS Post Cath Vital Signs Time Heart Resp SPO2 etCO2 NIBP (mmHg) Rhythm Pain Sedation Rate (ipm) (%) (mmHg) Status Level (bpm) 12:38:52 50 14 98 26.3 161/59(123) SB 0 (11) 10(A) , No pain 12:43:21 45 17 100 33.9 152/64(119) SB 0 (11) 10(A) , No pain 12:47:55 44 18 100 39.2 141/27(63) SB 0 (11) 10(A) , No pain 12:52:15 42 24 99 25.6 133/53(101) SB 0 (11) 10(A) , No pain 12:57:14 46 23 99 39.9 Measuring SB 0 (11) 10(A) , No pain 12:57:24 46 24 99 41 139/63(102) SB 0 (11) 10(A) , No pain 13:01:44 44 28 99 36.1 135/61(105) SB 0 (11) 10(A) , No pain 13:06:05 44 13 98 40.7 139/58(103) SB 0 (11) 10(A) , No pain Medications Time Medication Route Dose Verified Delivered Reason Notes Effectiv eness by by 12:37:36 0.9% NaCl I.V. 100 Colton Janice used for ml/hr St Alex Sampson procedure MD DIMAS 12:37:42 Oxygen etCO2 2 Colton Janice used for Nasal l/min St Alex Sampson procedure cannula MD DIMAS 12:37:47 Lidocaine added 20ml Colton Segura for local 2% to vial [facility] anesthetic field MD RUBALCAVA 12:46:50 Versed I.V. 2 mg Colton Janice for ChetanAlex Sampson sedation MD DIMAS 12:46:57 Fentanyl I.V. [address] Colton Perrya for mcg [facility] Alex Sampson sedation MD DIMAS 12:53:52 Versed I.V. 2 mg Colton Minayla for [facility] Alex Sampson sedation MD DIMAS 12:53:56 Fentanyl I.V. 50 Colton Minayla for mcg [address] Alex Sampson sedation MD district traffic chief Log Time Note 12:08:21 Informed consent obtained and on chart 12:10:14 Indication : Bradycardia 12:10:24 Arrival Date: 12/18/2019 12:00:00 AM 12:10:30 Patient Height : 68.9 inches 12:10:36 Patient Weight : 180.78 lbs 12:11:09 Procedure Status PPM/ Gen Change/ Lead Revision/ Temp. 12:11:34 Patient allergic to No known allergies 12:30:02 Chanell Hollins RT(R) sent for patient. Start room use. 12:30:05 Time tracking: Regular hours (M-F 7:00 - 5:00) 12:30:14 Plan of Care:Hemodynamics will remain stable., Cardiac rhythm will remain stable., Comfort level will be maintained., Respiratory function will remain adequate., Patient/ family verbilizes understanding of procedure., Procedure tolerated without complication., Recovers from procedure without complications.. 12:33:24 Patient arrived from Pre/Post Procedure Room to [facility] 2. Patient remains on bed/stretcher for procedure. 12:33:39 Warm blankets applied, and adrienne hugger turned on for patient comfort. 12:33:40 Correct patient and procedure confirmed by team. 12:33:42 ECG and BP/O2 sat monitors applied to patient. 12:33:52 H&P Date Dictated: 12/18/2019 H&P Addendum completed by physician on day of procedure. (MUST COMPLETE FOR ALL OUTPATIENTS), New H&P dictated by physician.. 12:33:53 Pre-procedure instructions explained to patient. 12:33:54 Pre-op teaching completed and patient verbalized understanding. 12:33:57 Family unavailable. 12:34:00 Patient NPO since Midnight. 12:34:10 Was the patient premedicated? Yes 12:34:13 Is the patient allergic to Iodine/contrast media? No. 12:34:17 Is patient on blood thinner?No 12:34:33 Patient diabetic? No. 12:34:36 ----Pre-sedation anethsthesia assessment.---- 12:34:41 Previous problem with sedation/anesthesia? No ? 12:34:47 Snore? Yes 12:34:49 Sleep apnea? Yes 12:34:52 Deviated septum? Unknown 12:34:55 Opens mouth fully? Yes 12:34:59 Sticks out tongue? Yes 12:37:29 Vital chart was started 12:37:36 0.9% NaCl 100 ml/hr I.V. was administered by Janice Sampson RN; used for procedure; Verbal order read back and verified. 12:37:42 Oxygen 2 l/min etCO2 Nasal cannula was administered by Janice Sampson RN ; used for procedure; Verbal order read back and verified. 12:37:47 Lidocaine 2% 20ml vial added to field was administered by Colton Benton MD; for local anesthetic; Verbal order read back and verified. 12:38:21 Airway obstruction? Yes SLEEP APNEA/NO CPAP 12:38:25 Dentures? No ? 12:38:49 IV patent on arrival in right forearm with 0.9% NaCl at [facility]. 12:39:19 Mid Chest area was prepped with chlora-prep and draped in sterile fashion 12:39:25 Alarms reviewed by R. N. 12:39:26 Sharps counted by scrub and verified by R.N. 12:42:04 [email or web address] Loop Recorder opened to sterile field. 12:43:27 Physician arrived 12:43:28 --------ALL STOP TIME OUT------ 12:43:32 Final Timeout: patient, procedure, and site verified with staff and physician. All members of the team are in agreement. 12:43:37 Mid Chest site verified by team. 12:43:55 Fire Safety Assessment: A--An alcohol-based skin anteseptic being used preoperatively., B--The operative or invasive procedure is being performed above the xiphoid process or in the oropharynx., E--There are other possible contributors. 12:44:02 Physical assessment completed. ASA score P 2 - A patient with mild systemic disease as per Colton Benton MD. 12:44:12 Sedation plan: IV Moderate Sedation Medication:Versed, Fentanyl 12:44:33 [employer] wholesale representative KARLI ROMERO present for procedure. 12:46:50 Versed 2 mg I.V. was administered by Janice Sampson RN; for sedation; Verbal order read back and verified. 12:46:57 Fentanyl 50 mcg I.V. was administered by Janice Sampson RN; for sedation ; Verbal order read back and verified. 12:50:12 SHANNAN SPOKE TO TO INFORM PROCEDURE STARTING. 12:53:52 Versed 2 mg I.V. was administered by Janice Sampson RN; for sedation; Verbal order read back and verified. 12:53:56 Fentanyl 50 mcg I.V. was administered by Janice Sampson RN; for sedation ; Verbal order read back and verified. 12:54:41 Procedure started. 12:54:44 Full Disclosure recording started 12:54:59 Baseline sample Acquired. 12:55:05 Rhythm: sinus bradycardia 12:55:11 - 12:55:42 Lidocaine 2% was administered to mid chest by Colton Benton MD . 12:57:35 Incision made to mid chest. 12:59:57 Linq was inserted subcutaneously to mid chest. 13:00:26 Procedure ended.(Physican Out) 13:02:36 Linq was interrogated. 13:02:57 Skin closure was completed with 5-0 monocryl. 13:03:26 Mid Chest incision was dressed with 4 x 4 and Tegaderm. 13:03:42 Sharps counted by scrub and verified by R.N. 13:03:45 Insertion/operative site no bleeding no hematoma. 13:04:01 Post Chest area:stable 13:04:08 Post-procedure physical assessment completed. ASA score P 2 - A patient with mild systemic disease as per Colton Benton MD. 13:04:14 Post procedure rhythm: unchanged. 13:04:22 Estimated blood loss: 0 ml 13:04:38 Post procedure instruction explained to patient.Patient verbalizes understanding. 13:04:50 Patient needs reinforcement of post procedure teaching. 13:05:10 Procedure type changed to Cath procedure, Diagnostic procedure, PPM/ICD , Loop Recorder Implant, Sedation Charges, Moderate Sedation up to 15 minutes 13:05:52 Procedure and supply charges have been captured, reviewed, submitted an d are correct. 13:06:14 Procedure Complication : No complications 13:06:18 Vital chart was stopped 13:06:22 Operative report dictated upon procedure completion. 13:06:23 See physician's report for complete and final results. 13:06:26 Report given to Pre/Post Procedure Room. 13:06:33 Patient transfered to Pre/Post Procedure Room with Stretcher. 13::43 Procedure ended. ::43 Full Disclosure recording stopped 13:10:51 End room use (Document Last) Device Usage Item Name Manufacture Quantity Catalog Hospital Part Current Minimal Lot# / Number Charge Number Stock Stock Serial# Code Medtronic Medtronic 1 [id number] Linq Loop 2020 Recorder Signature Audit Horse Branch Stage Time Signature Unsigned Intra-Procedure 12/18/2019 Shannan 1:11:24 PM Yung LLOYD(R) (CV) Intra-Procedure 12/18/2019 Janice Sampson 1:12:08 PM RN Intra-Procedure 12/18/2019 Colton Colbert 1:13:09 PM Alex RUBALCAVA Signatures Performing Physician : Signature : Colton Benton MD Date : Time : Monitor : Shannan Signature : Yung RT Date : Time : Nurse : Janice Sampson RN Signature : Date : Time : [address] [place] [address]
[2019-12-18 11:37] VITALS: BP 151/60; Ht 175.3 cm; Wt 81.5 kg
[2019-12-18] MEDS ORDERED: CARAFATE1 G PO (11:47)
[2019-12-18] MEDS ORDERED: OMEPRAZOLE20 M1 PO (11:47)
--- NOTE | 2019-12-18 13:20 | NUR ---
PT RECEIVED BACK TO ROOM FOR RECOVERY VIA STRETCHER AFTER LINQ MONITOR PLACEMENT. PT AWAKE AND ALERT, DENIES PAIN OR DISCOMFORT. IV PATENT INFUSING VIA ORDERS. INCISION TO L UPPER CHEST, 4X4 AND MEDIPLEX DRESSING APPLIED. NO BLEEDING OR SWELLING NOTED. PT PLACED ON CARDIAC MONITORS AND O2 VIA NC AT 2L. HR SB 44, BP 138/55, RR 12. CALL LIGHT IN REACH.
--- NOTE | 2019-12-18 13:48 | NUR ---
PT RESTING COMFORTABLY W EYES CLOSED. MEDIPLEX DRESSING INTACT, NO BLEEDING OR SWELLING NOTED. VSS. CALL LIGHT IN REACH
--- NOTE | 2019-12-18 14:14 | NUR ---
DISCHARGE INSTRUCTIONS REVIEWED W PT, HE VERBALIZED UNDERSTANDING. IV REMOVED W CATH INTACT, MONITORS REMOVED AND PT UP TO DRESS FOR DISCHARGE.
--- NOTE | 2019-12-18 14:27 | NUR ---
PT AMBULATED TO BR, VOIDING W/O DIFFICULITY. PT THEN DISCHARGED VIA WC TO WAITING IN PRIVATE VEHICLE. PT HAD ALL BELONGINGS, DISCHARGE PAPERWORK AND MONITOR EQUIPMENT FOR HIS LINQ.
--- NOTE | 2019-12-19 08:24 | OP ---
PATIENT NAME: NOVA RODRIGUEZ MEDICAL RECORD: [id number] :41 LOCATION:[facility] ADMISSION DATE: SURGEON: GIULIA BROCK MD DATE OF OPERATION: 12/18/2019 PROCEDURE: LINQ placement. DESCRIPTION OF PROCEDURE: After the fifth intercostal space was marked and anesthetized with local lidocaine, a single incision was made and blunt dissection was carried out to ensure adequate deployment of the LINQ device was deployed without complications and closed with suture and Dermabond. IMPRESSION: Successful LINQ deployment. COMPLICATIONS: None. TRANSINT:[id number] Voice Confirmation ID: [id number] DOCUMENT ID: [id number] GIULIA BROCK MD at 0824 CC: [id number] DICTATION DATE: 12/18/19 1309 ARMAMENT REPAIRER: 12/18/19 1536 DEP CLI 12/18/19 [id number] [place] [address]
== END 2019-12-18 14:28 | disposition home or self-care (01) ==
LOC: D.CATH 11:15
PROVIDERS: ATTEND Internal Medicine Interventional Cardiology
DX: R00.1 Bradycardia, unspecified (principal); R55 Syncope and collapse; I25.10 Atherosclerotic heart disease of native coronary artery without angina pectoris; I65.22 Occlusion and stenosis of left carotid artery

== ENCOUNTER 2020-01-09 06:16 | Outpatient (CLI) | payer MEDICARE, OTHER ==
[~2020-01-09] VITALS: Ht 175.3 cm; Wt 82.1 kg
--- NOTE | ~2020-01-09 | HEMODYNAMI ---
PATIENT:NOVA RODRIGUEZ MEDICAL RECORD: [id number] : 42 LOCATION:[facility] ADMISSION DATE: 01/09/20 Generatedon:01/09/20209:19 Patient name: NOVA RODRIGUEZ Patient #: [id number] SSN: [id number] : 1940 Date of study: 01/09/2020 Page: Of Hemodynamic Procedure Report Patient Data Patient Demographics Procedure consent was obtained First Name: NOVA Gender: Male Last Name: MICHAEL : 1940 [facility] Initial: OSCAR Age: 79 year(s) Patient #: [id number] Race: SSN: [id number] Additional ID: [id number] Contact details Address: [address] [place] [address] State: [place] City: [place] Zip code: [address] Past Medical History Allergies: No known allergies Admission Admission Data Admission Date: 01/09/2020 Admission Time: 6:16 Arrival Date: 01/09/2020 Arrival Time: 0:00 Admit Source: Other Insurance Payor: Medicare [facility] #: [id number] Height (in.): 69 BSA: 1.98 (m2) Height (cm.): 175.26 BMI: 26.73 (kg/m2) Weight (lbs.): 180.98 Weight (kg.): 82.09 Lab Results Lab Result Date: 01/09/2020 Lab Result Time: 0:00 Biochemistry Name Units Result Min Max BUN mg/dl 19 --(----)*- 7 18 Creatinine mg/dl 1.1 --(--*-)-- 0.6 1.3 eGFR ml/min 69 *-(----)-- 90 120 NONAFRICAN CBC Name Units Result Min Max Hematocrit % 44.9 --(*---)-- 42 54 Hemoglobin g/dl 14.9 --(-*--)-- 13.5 17.5 Procedure Procedure Types Cath Procedure Diagnostic Procedure PPM/ICD PPM Dual Implant Sedation Charges Moderate Sedation up to 45 minutes Procedure Description Procedure Date Procedure Date: 01/09/2020 Procedure Start Time: 8:40 Procedure Staff Name Function Colton Benton MD Performing Physician Tung Jain MD Assisting physician Prudence Bentley RT Scrub Karen Nieto RT Monitor Torsten Winn RN Nurse Procedure Data Cath Procedure Fluoroscopy Diagnostic fluoroscopy Total fluoroscopy Time: 3.4 time: 3.4 min min Diagnostic fluoroscopy Total fluoroscopy dose: dose: 141.49 mGy 141.49 mGy Contrast Material Contrast Material Type Amount (ml) Isovue 300 0 Estimated blood loss: 5 ml Procedure Complications No complications Procedure Medications Medication Administration Route Dosage Ancef (1Gm/50ml NS) I.V.P.B 1 g Ancef Irrigation Topical 1 g (1gm/500ml NS) Lidocaine 1% added to field 20 Oxygen etCO2 Nasal cannula 2 l/min Versed I.V. 1 mg Fentanyl I.V. 50 mcg Versed I.V. 1 mg Fentanyl I.V. 50 mcg Versed I.V. 1 mg Fentanyl I.V. 50 mcg Versed I.V. 1 mg Fentanyl I.V. 50 mcg Hemodynamics Rest BSA: 1.98 (m2) O2 Consumption: Estimated: 269.28 (ml/min) O2 Consumption indexed : Estimated:136 (ml/min/m) Pre Cath Intra NCS Post Cath Vital Signs Time Heart Resp SPO2 etCO2 NIBP (mmHg) Rhythm Pain Sedation Rate (ipm) (%) (mmHg) Status Level (bpm) 8:20:15 44 14 100 33.8 188/76(148) SB (Missing) 10(A) 8:25:49 44 13 100 36.8 172/69(141) SB (Missing) 10(A) 8:30:07 44 14 100 27.7 147/65(120) SB (Missing) 9(A) 8:39:47 46 12 100 33 138/60(107) SB (Missing) 9(A) 8:43:57 120 13 99 49.5 136/62(107) SB (Missing) 9(A) 8:48:09 50 14 96 51 138/66(113) SB (Missing) 9(A) 8:52:23 49 14 97 37.5 122/69(97) SB (Missing) 9(A) 8:56:30 46 14 99 30.8 131/68(100) SB (Missing) 10(A) 9:00:44 48 13 95 32.78 123/61(106) SB (Missing) 9(A) 9:04:48 79 15 94 31.5 127/78(112) Paced (Missing) 9(A) 9:08:56 60 14 92 2.2 121/73(110) Paced (Missing) 10(A) 9:13:00 59 11 93 4.5 135/75(117) Paced (Missing) 10(A) Medications Time Medication Route Dose Verified Delivered Reason Notes Effective ness by by 8:20:06 Ancef I.V.P.B 1 g Colton Buffie used for (1Gm/50ml Chetan Winn automatic log cut off sawyer NS) 8:23:43 Oxygen etCO2 2 Colton Buffie used for Nasal l/min Chetan Winn automatic log cut off sawyer cannula 8:25:44 Versed I.V. 1 mg Colton Buffie for Chetan Winn RN sedation 8:25:50 Fentanyl I.V. 50 [place] [facility] [place] Winn RN sedation 8:26:30 Lidocaine added 20ml Colton Temple for local 1% to vial St Alex Jain MD anesthetic field x 2 8:33:14 Ancef Topical 1 g Colton Buffie used for Irrigation Chetan Winn automatic log cut off sawyer (1gm/500ml MD NS) 8:36:55 Versed I.V. 1 mg Colton Buffie for Chetan Winn RN sedation 8:36:59 Fentanyl I.V. 50 [place] [facility] [place]tan Winn RN sedation 8:49:38 Versed I.V. 1 mg Colton Buffie for Chetan Winn RN sedation 8:49:43 Fentanyl I.V. 50 [place] [facility] [place] Chetan Winn RN sedation 8:56:51 Versed I.V. 1 mg Colton Buffie for Chetan Winn RN sedation 8:56:55 Fentanyl I.V. 50 [place] [facility] [place]tan Winn RN sedation Procedure Log Time Note 7:38:56 Procedure Status PPM/ Gen Change/ Lead Revision/ Temp. 7:38:58 Time tracking: Regular hours (M-F 7:00 - 5:00) 7:39:01 Plan of Care:Hemodynamics will remain stable., Cardiac rhythm will remain stable., Comfort level will be maintained., Respiratory function will remain adequate., Patient/ family verbilizes understanding of procedure., Procedure tolerated without complication., Recovers from procedure without complications.. 7:39:37 Patient allergic to No known allergies 8:00:28 Admit Source: Other 8:01:04 H&P Date Dictated: 01/02/2020 Within 30 days and on chart.. 8:01:05 Pre-procedure instructions explained to patient. 8:01:05 Pre-op teaching completed and patient verbalized understanding. 8:01:09 Family in waiting room. 8:01:11 Patient NPO since Midnight. 8:01:16 Alarms reviewed by R. N. 8:01:16 Sharps counted by scrub and verified by R.N. 8:02:42 Lab Result : BUN 19 mg/dl 8:02:42 Lab Result : Creatinine 1.1 mg/dl 8:02:42 Lab Result : Hemoglobin 14.9 g/dl 8:02:42 Lab Result : eGFR NONAFRICAN 69 ml/min 8:02:42 Lab Result : Hematocrit 44.9 % 8:02:53 Diagnostic Cath Status : Elective 8:03:55 Arrival Date: 01/09/2020 12:00:00 AM 8:03:59 Patient Height : 69 inches 8:04:07 Patient Weight : 180.98 lbs 8:04:17 Insurance Payor : Medicare 8:04:43 Lab results completed and on chart. 8:04:47 Stress Test: no; N/A ? 8:05:00 Use device set [place] PPM 8:07:10 Prudence LLOYD(R) sent for patient. Start room use. 8:20:06 Ancef (1Gm/50ml NS) 1 g I.V.P.B was administered by Torsten Winn RN; used for procedure; Verbal order read back and verified. 8:22:25 Patient received from Pre/Post Procedure Room to CCL 3 Alert and oriented. Tansferred to table in Supine position. 8:22:28 Signed procedure consent form obtained from patient. 8:22:29 Warm blankets applied, and adrienne hugger turned on for patient comfort. 8:22:30 Correct patient and procedure confirmed by team. 8:22:30 ECG and BP/O2 sat monitors applied to patient. 8:22:31 Vital chart was started 8:22:36 Rhythm: sinus bradycardia 8:22:38 Full Disclosure recording started 8:22:42 Is the patient allergic to Iodine/contrast media? No. 8:22:44 Was the patient premedicated? No 8:22:45 Is patient on blood thinner?Yes 8:22:55 Patient diabetic? No. 8:23:01 Previous problem with sedation/anesthesia? No ? 8:23:04 Snore? Yes 8:23:05 Sleep apnea? Yes 8:23:13 Deviated septum? No 8:23:13 Opens mouth fully? Yes 8:23:14 Sticks out tongue? Yes 8:23:16 Airway obstruction? No ? 8:23:19 Dentures? No ? 8:23:25 Patient pain scale 0/10 ?. 8:23:30 IV patent on arrival in left forearm with 0.9% NaCl at [facility]. 8:23:35 Physician arrived 8:23:35 --------ALL STOP TIME OUT------ 8:23:36 Final Timeout: patient, procedure, and site verified with staff and physician. All members of the team are in agreement. 8:23:39 Left chest site verified by team. 8:23:43 Oxygen 2 l/min etCO2 Nasal cannula was administered by Torsten Winn RN; used for procedure; Verbal order read back and verified. 8:23:50 Fire Safety Assessment: A--An alcohol-based skin anteseptic being used preoperatively., E--There are other possible contributors. 8:23:53 Physical assessment completed. ASA score P 2 - A patient with mild systemic disease as per Colton Benton MD. 8:23:58 Sedation plan: IV Moderate Sedation Medication:Versed, Fentanyl 8:24:10 Medtronic underwriting service representative KARLI ROMERO present for procedure. 8:24:19 Pre sharps counted by scrub and verified by RN: Sutures: 7; Sponges: 5; Stick needles: 2; Skin needles: 2; Blade: 1; Cautery: 1 8:24:23 Grounding pad site Left thigh. 8:24:24 Grounding pad site free from injury. 8:25:44 Versed 1 mg I.V. was administered by Torsten Winn RN; for sedation; Verbal order read back and verified. 8:25:50 Fentanyl 50 mcg I.V. was administered by Torsten Winn RN; for sedation; Verbal order read back and verified. 8:26:30 Lidocaine 1% 20ml vial x 2 added to field was administered by Tung Jain MD; for local anesthetic; Verbal order read back and verified. 8:33:14 Ancef Irrigation (1gm/500ml NS) 1 g Topical was administered by Torsten Winn RN; used for procedure; Verbal order read back and verified. 8:36:55 Versed 1 mg I.V. was administered by Torsten Winn RN; for sedation; Verbal order read back and verified. 8:36:59 Fentanyl 50 mcg I.V. was administered by Torsten Winn RN; for sedation; Verbal order read back and verified. 8:40:18 Lidocaine 1% w/epi was administered to left subclavicular area by Tung Jain MD . 8:40:[address] Generator [id number] opened to sterile field. 8:41:37 Medtronic 4074-52 PPM Lead opened to sterile field. 8:42:32 Medtronic 4574-45 PPM Lead opened to sterile field. 8:43:06 Incision made to left subclavicular area. 8:43:17 2-0 Ticron Multipack ([id number]) opened to sterile field. 8:43:18 3-0 Vicryl Single Pack [id number] opened to sterile field. 8:43:18 5-0 Monocryl PS2 [id number] opened to sterile field. 8:43:19 Cautery Tip Manager [employer] opened to sterile field. 8:43:20 Cautery Pushbutton Pencil opened to sterile field. 8:43:20 Mepilex Dressing (696309) opened to sterile field. 8:43:23 Immobilizer Extra Large opened to sterile field. 8:47:24 Generator pocket made/opened. 8:47:32 Left subclavian vein accessed with 7Fr Peel Away Sheath. 8:47:35 Left subclavian vein accessed with 7Fr Peel Away Sheath. 8:47:41 Ventricular lead inserted and advanced. 8:47:43 Atrial lead inserted and advanced. 8:49:38 Versed 1 mg I.V. was administered by Torsten Winn RN; for sedation; Verbal order read back and verified. 8:49:43 Fentanyl 50 mcg I.V. was administered by Torsten Winn RN; for sedation; Verbal order read back and verified. 8:51:13 Ventricular lead positioned. 8:51:25 Atrial lead positioned. 8:56:51 Versed 1 mg I.V. was administered by Torsten Winn RN; for sedation; Verbal order read back and verified. 8:56:55 Fentanyl 50 mcg I.V. was administered by Torsten Winn RN; for sedation; Verbal order read back and verified. 9:00:50 Peel-a-way sheath was split and removed. 9:00:51 Peel-a-way sheath was split and removed. 9:01:00 Ventricular lead attachment was completed with 2-0 ticron. 9:01:02 Atrial lead attachment was completed with 2-0 ticron. 9::38 PPM Dual was attached to lead(s) and inserted into pocket. 9:01:42 Generator was sutured in place with 2-0 ticron. 9:03:29 Device pocket was irrigated with Ancef. 9:03:46 Parameters-- Generator: Mode: DDDR. Lower Rate: 60bpm. Upper Rate: 120bpm. 9:04:12 Parameters--Ventricular P/R Wave: 7.4mV. Current: 0.4mA; Threshold: 0.4V; Impedence: 1149OHMS. 9:04:38 Parameters--Atrial P/R Wave: 2.7mV. Current: 0.8mA; Threshold: 0.4V; Impedence: 568OHMS. 9:06:11 Subcutaneous closure was completed with 3-0 vicryl plus. 9:06:22 Skin closure was completed with 5-0 monocryl. 9:14:13 Linq was removed.. 9:14:19 Lt Chest incision was dressed with Mepilex dressing. 9:14:52 Procedure ended.(Physican Out) 9:15:00 Fluoroscopy time 03.40 minutes. 9:15:08 Fluoroscopy dose: 141.49 mGy 9:15:08 Flurop Dose total: 141.49 9:15:19 Dose Area Product 1620 mGy/cm. 9:15:23 Contrast amount:Isovue 300 0ml. 9:15:25 Maximum allowable dose exceeded? No. 9:15:26 Sharps counted by scrub and verified by R.N. 9:15:28 Insertion/operative site no bleeding no hematoma. 9:15:39 Post procedure rhythm: paced 9:15:41 Estimated blood loss: 5 ml 9:15:44 Patient needs reinforcement of post procedure teaching. 9:15:45 Post procedure instruction explained to patient.Patient verbalizes understanding. 9:16:43 Procedure type changed to Cath procedure, Diagnostic procedure, PPM/ICD, PPM Dual Implant, Sedation Charges, Moderate Sedation up to 45 minutes 9:16:45 Procedure and supply charges have been captured, reviewed, submitted and are correct. 9:16:50 Procedure Complication : No complications 9:16:53 Vital chart was stopped 9:16:59 Operative report dictated upon procedure completion. 9:17:00 See physician's report for complete and final results. 9:17:02 Report given to Pre/Post Procedure Room. 9:17:09 End room use (Document Last) 9:18:00 End room use (Document Last) 9:18:18 End room use (Document Last) Device Usage Item Name Manufacture Quantity Catalog Hospital Part Current Minima l Lot# / Number Charge Number Stock Stock Serial# Code Medtronic Medtronic 1 [id number] [id number] EXP Generator 04-04-2021 [id number] Medtronic Medtronic 1 4074-52 032514 861197 165708 5 [id number] 4074-52 PPM EXP Lead 04-03-2020 Medtronic Medtronic 1 4574-45 403775 722663 591505 5 [id number] 4574-45 PPM EXP Lead 02-21-2020 2-0 Ticron Ethicon 1 [id number] 266043 47868 514192 5 Multipack ([id number]) 3-0 Vicryl Ethicon 1 [id number] 012746 394055 062809 5 Single Pack [id number] 5-0 Monocryl Ethicon 1 Y495G 672019 422479 294135 5 PS2 Y495G Cautery Tip Microtek 1 [id number] 988431 992726 333902 5 [employer] Cautery Microtek 1 [id number] 797419 37409 744554 5 Pushbutton [employer] Inc. Pencil Mepilex Cardinal 1 945729 110300 973980 927962 5 Dressing Health (839639) Immobilizer Cardinal 1 [id number] 678640 868270 149808 5 Extra Large Health Signature Audit Hermann Stage Time Signature Unsigned Intra-Procedure 01/09/2020 Karen Nieto 9:18:00 AM RT(R) Intra-Procedure 01/09/2020 Torsten Winn RN 9:18:18 AM Intra-Procedure 01/09/2020 Colton Colbert 9:19:15 AM Alex [address] [place] [address]
[~2020-01-09 06:16] MED LIST changes: +OMEPRAZOLE20 M1 PO
[2020-01-09] MEDS ORDERED: LIPITOR10 MG PO (06:33)
[2020-01-09] MEDS ORDERED: CELEXA20 MG PO (06:34)
[2020-01-09] MEDS ORDERED: SYNTHROID100 MCG PO (06:35)
[2020-01-09] MEDS ORDERED: RESTORIL15 MG PO (06:35)
[2020-01-09] MEDS ORDERED: RIVASTIGMINE4.5 MG PO (06:35)
[2020-01-09] MEDS ORDERED: MOBIC7.5 MG PO (06:35)
[2020-01-09 06:40] VITALS: BP 165/63; Ht 175.3 cm; Wt 82.1 kg
[2020-01-09 07:01] LABS: HEMATOCRIT 44.9 % (42.0-54.0); HEMOGLOBIN 14.9 g/dL (13.5-17.5); MCH 31.6 pg (26.0-34.0); MCHC 33.2 g/dL (31.0-37.0); MCV 95.1 fL (80.0-100.0); MEAN PLATELET VOLUME 9.3 fL (7.4-10.4); RBC 4.72 10x6/uL (4.20-6.10); RDW 13.1 % (11.5-14.5)
[2020-01-09 07:22] LABS: ANION GAP 10.2 mmol/L (8-16); CALCIUM 8.4 mg/dL (8.5-10.1); CARBON DIOXIDE 28.7 mmol/L (21.0-32.0); CREATININE - SERUM 1.1 mg/dL (0.6-1.3); POTASSIUM - SERUM 3.9 mmol/L (3.5-5.1)
[2020-01-09 07:23] LABS: PROTIME 13.2 SECONDS (11.6-15.0)
--- NOTE | 2020-01-09 09:30 | NUR ---
PT RECEIVED BACK TO ROOM VIA STRETCHER FOR RECOVERY. PT SLEEPY BUT VERBALLY AROUSABLE. PT DENIES PAIN OR DISCOMFORT. BANDAID TO U L CHEST WHERE LINQ RECORDER WAS REMOVED, NO BLEEDING OR SWELLING NOTED. MEDIPLEX DRESSING TO UPPER L CHEST, DRESSING CDI NO S/S BLEEDING OR SWELLING. IV PATENT INFUSING VIA ORDERS TO L ARM. HR PACED AT 60, BP 155/72, RR 18, SAT 95 ON ROOM AIR. PT L ARM IN SLING, HE IS INSTRUCTED NOT TO MOVE THAT ARM, HE UNDERSTOOD. CALL LIGHT IN REACH
--- NOTE | 2020-01-09 10:00 | NUR ---
PT RESTING COMFORTABLY, MEDIPLEX AND BANDAID TO UP CHEST ARE CDI NO BLEEDING OR SWELLING NOTED. PT DENIES PAIN OR DISCOMFORT. VSS. PO FLUIDS GIVEN PER PT REQUEST. CALL LIGHT IN REACH.
--- NOTE | 2020-01-09 10:45 | NUR ---
PT SITTING UP IN BED, AWAKE AND ALERT. DENIES PAIN OR DISCOMFORT. VSS, BANDAID AND MEDIPLEX DRESSING CDI NO BLEEDING NOTED. CALL LIGHT IN REACH.
--- NOTE | 2020-01-09 11:25 | NUR ---
MONITORS REMOVED, PT AMBULATED TO BR, VOIDING W/O DIFFICULITY. PT BACK TO ROOM WAITING ON XRAY
--- NOTE | 2020-01-09 11:33 | NUR ---
DISCHARGE INSTRUCTIONS REVIEWED W PT, HE VERBALIZED UNDERSTANDING. WAITING ON XRAY BEFORE DISCHARGE. DR BROCK WAS IN ROOM DISCCUSED PLAN OF CARE W PT. NO NEW ORDERS.
--- NOTE | 2020-01-09 11:55 | NUR ---
XRAY COMPLETED, PT DISCHARGED VIA WC TO PRIVATE VEHICLE. PT HAD ALL BELONGINGS
--- NOTE | 2020-01-09 11:55 | NUR ---
PT PULLED IV OUT BY ACCIDENT, CATH WAS INTACT. PRESSURE APPLIED AND BANDAID AND KOBAN APPLIED.
--- NOTE | 2020-01-10 08:09 | OP ---
PATIENT NAME: BOOGIE RODRIGUEZ MEDICAL RECORD: [id number] :42 LOCATION:D.CAT ADMISSION DATE: SURGEON: GIULIA BROCK MD DATE OF OPERATION: 01/09/2020 PROCEDURE: Lead portion of permanent pacemaker placement. INDICATION: Sick sinus syndrome with pauses. SURGEON: Tung Jain MD DESCRIPTION OF PROCEDURE: After left subclavian was cannulated via Dr. Jain, first, under fluoroscopic guidance, I placed the RV lead in the RV apex without difficulty. After adequate thresholds and R waves were obtained, then again under fluoroscopic guidance, I placed the right atrial lead in the right atrial appendage without difficulty. After adequate P waves and thresholds were obtained, the leads were attached to appropriate poles of the generator and the pocket was closed via Dr. Jain. IMPRESSION: Successful lead portion of permanent pacemaker placement on Boogie Rodriguez. ESTIMATED BLOOD LOSS: Minimal. DISPOSITION: To the floor, stable. TRANSINT:[id number] Voice Confirmation ID: [id number] DOCUMENT ID: [id number] GIULIA BROCK MD at 0809 CC: [id number] DICTATION DATE: 01/09/20 09 JUKEBOX OPERATOR: 01/09/20 1233 DEP CLI 01/09/20 [address] [place] [address]
--- NOTE | 2020-01-10 16:54 | OP ---
PATIENT NAME: NOVA RODRIGUEZ MEDICAL RECORD: [id number] :42 LOCATION:D.JAYLYN ADMISSION DATE: SURGEON: TUNG BARAHONA MD DATE OF OPERATION: 01/09/2020 PREOPERATIVE DIAGNOSIS: Sick sinus syndrome with pauses. POSTOPERATIVE DIAGNOSIS: Sick sinus syndrome with pauses. PROCEDURE: 1. Left subclavian vein dual lead pacemaker placement. 2. Fluoroscopic interpretation. 3. LINQ device removal. SURGEON: Tung Barahona MD CO-SURGEON: Colton Greene MD REPORT OF OPERATION: The patient's left chest was prepped and draped in sterile fashion. A 15 mL of 1% lidocaine with epinephrine was infused into the subcutaneous tissues. A transverse incision was made on the left superior lateral chest and a subcutaneous pouch was made over the pectoral fascia. [place] were used to cannulate the left subclavian vein and guidewires were advanced times 2. The Fluoro was used to note that the wires were in good position in the venous system. Dilator trocar device was replaced over the wires and the wires and dilators were removed. The leads were advanced through the trocars into the superior vena cava. At this point, Dr. Greene positioned the leads appropriately in the atrium and ventricle. Once the leads were noted to be functioning appropriately, then they were sutured into place with 2-0 TiCron. The leads were affixed to the pacemaker, which was placed into the subcutaneous pouch and sutured to the pectoral fascia with a single interrupted 2-0 TiCron. We irrigated out the wound bed with antibiotic solution. The subcutaneous tissues were reapproximated with interrupted 3-0 Vicryl and the skin was closed with running subcutaneous 5-0 Monocryl. We then placed a 5 cc of 1% lidocaine into the skin incision where a LINQ device had previously been placed. A skin incision was made longitudinally overlying this and we were able to eviscerate the LINQ device through the incision intact. The subcutaneous tissues were then reapproximated with interrupted 5-0 Monocryl and dressed appropriately. COMPLICATIONS: None. CONDITION: Stable. ANESTHESIA: Local MAC. BLOOD LOSS: Minimal. TRANSINT:[id number] Voice Confirmation ID: [id number] DOCUMENT ID: [id number] OPERATIVE REPORT [id number] NOVA RODRIGUEZ TUNG BARAHONA MD at 1654 CC: [id number] DICTATION DATE: 01/09/2018 PRODUCTION QUALITY MANAGER: 01/09/20 0958 DEP CLI 01/09/20 [id number] [place] [address]
== END 2020-01-09 11:50 | disposition home or self-care (01) ==
LOC: D.CATH 06:16
PROVIDERS: ATTEND Internal Medicine Interventional Cardiology
DX: I49.5 Sick sinus syndrome (principal); R55 Syncope and collapse; I25.10 Atherosclerotic heart disease of native coronary artery without angina pectoris; I65.22 Occlusion and stenosis of left carotid artery; I10 Essential (primary) hypertension

== ENCOUNTER 2020-01-16 11:07 | Observation (INO) | payer MEDICARE, OTHER ==
[~2020-01-16] VITALS: Ht 175.3 cm; Wt 79.5 kg
--- NOTE | ~2020-01-16 | EEG ---
PATIENT:NOVA RODRIGUEZ MEDICAL RECORD: [id number] DATE OF : 42 LOCATION:D.222 D.MS ADMISSION DATE: 01/16/20 REFERRING PHYSICIAN: INTERPRETING PHYSICIAN: HANNAH TOVAR MD DATE OF SERVICE: 01/17/2020 DATE OF EE01/17/2020 ROOM NUMBER: [id number]. ORDERING PHYSICIAN: Emergency Room. CASE HISTORY: A 79-year-old male with reported syncopal event on 01/16/2020. The patient had aroused at night and walked to the bathroom and "passed out" in the bathroom. MEDICATIONS: Include Flomax, Protonix, calcium, citalopram, rivastigmine, Meloxicam, temazepam, tamsulosin, tizanidine, hydrocodone, aspirin. PROCEDURE: EEG done as a routine bedside portable recording using the standard 10-20 international electrode system. A 16-channel was used with 17th as EKG. Photic stimulation and hyperventilation were done as activation procedures. DESCRIPTION OF PROCEDURE: EEG opens with the patient awake with the records displaying a well-organized posterior dominant rhythm of 10-11 Hz. This is of moderate amplitude, symmetric and attenuates with eye opening. Symmetric organized frontal beta is seen. Intermittent EMG motor artifact occurs obscuring portions of the background. No epileptiform change such as spike, polyspike or spike and wave was seen. Photic stimulation did not yield a significant driving response. There was a photomyogenic or photoparoxysmal response seen. Hyperventilation did not yield significant buildup of background voltages, no paroxysmal response was seen. IMPRESSION: Normal waking EEG without evidence of underlying seizure disorder. TRANSINT:[id number] Voice Confirmation ID: [id number] DOCUMENT ID: [id number] HANNAH TOVAR MD CC: [id number] DICTATION DATE: 01/17/20 1315 MECHANICAL PIPING DESIGNER: 01/17/20 1534 ADM IN [id number] [place] [address]
[~2020-01-16 11:07] MED LIST changes: +CELEXA20 MG PO; +RIVASTIGMINE4.5 MG PO
[2020-01-16] MEDS ORDERED: FLOMAX0.4 MG PO (11:12)
[2020-01-16] MEDS ORDERED: HYDROCODON-ACE1 EAC7 PO (11:13)
[2020-01-16] MEDS ORDERED: ZANAFLEX4 MG PO (11:13)
--- NOTE | 2020-01-16 11:18 | NUR ---
[facility] # [id number]
[2020-01-16 11:39] LABS: CALC OSMOLALITY 278 mosm/kg (275-300); CALCIUM 8.3 mg/dL (8.5-10.1); CARBON DIOXIDE 34.4 mmol/L (21.0-32.0); CHLORIDE - SERUM 106 mmol/L (98-107); CREATININE - SERUM 1.2 mg/dL (0.6-1.3); GLUCOSE 83 mg/dL (74-106); POTASSIUM - SERUM 4.3 mmol/L (3.5-5.1); SODIUM 139 mmol/L (136-145); UREA NITROGEN 19 mg/dL (7-18); eGFR NON AFRICAN AMERICAN 62 mL/min (90-120)
--- NOTE | 2020-01-16 11:39 | NUR ---
PACEMAKER INTERROGATED AND TRANSMITTED
[2020-01-16 11:45] LABS: APTT 27.7 SECONDS (22.8-39.4); PROTIME 13.1 SECONDS (11.6-15.0)
[2020-01-16 11:55] LABS: CKMB 0.9 U/L (0.0-3.6); CREATINE KINASE 55 UL (21-232)
[2020-01-16 11:57] LABS: TROPONIN-I < 0.017 ng/mL (0.000-0.060)
[2020-01-16 12:10] LABS: BASOPHILS 0.3 % (0-2); EOSINOPHILS 1.6 % (0-7); HEMATOCRIT 42.4 % (42.0-54.0); HEMOGLOBIN 13.8 g/dL (13.5-17.5); IMMATURE GRANULOCYTES 0.3 % (0-5); MCH 31.2 pg (26.0-34.0); MCHC 32.5 g/dL (31.0-37.0); MCV 95.7 fL (80.0-100.0); MEAN PLATELET VOLUME 9.4 fL (7.4-10.4); MONOCYTES 8.1 % (2-11); NEUTROPHILS 71.7 % (40-80); PLATELET COUNT 135 10x3/uL (130-400); RBC 4.43 10x6/uL (4.20-6.10); RDW 12.8 % (11.5-14.5); WBC 6.4 10x3/uL (4.8-10.8)
[2020-01-16 13:00] VITALS: BP 123/72
--- NOTE | 2020-01-16 13:00 | NUR ---
INTERROGATION TRANSMISSION FAILED, REINTERROGATED AND TRANSMITTED
--- NOTE | 2020-01-16 13:06 | NUR ---
KARLI FROM [employer] CALLED, RCVD TRANSMISSION SPOKE WITH YENI MCKAY
--- NOTE | 2020-01-16 13:30 | NUR ---
ATTEMPTED TO PLACE RIGHT KNEE IMMOBILIZER. PT REFUSED D/T "I CAN'T STRAIGHTEN MY LEG" BECKY MCKAY NOTIFIED
--- NOTE | 2020-01-16 14:09 | NUR ---
REPORT CALLED TO JUDIE WALTON
[2020-01-16 14:20] VITALS: BP 116/77
--- NOTE | 2020-01-16 14:20 | NUR ---
ADMIT TO ROOM #[id number], CONDITION STABLE
--- NOTE | 2020-01-16 14:30 | NUR ---
TO ROOM 2225 FROM ER. PATIENT IS WITHOUT DISTRESS.ASSESSMENT PER FLOW SHEET. SC'D ORDWERED. FALL PREVENTION INITIATED WITH DAVID MAT.MONITOR
[2020-01-16 15:46] VITALS: BP 157/73; BMI 25.9
--- NOTE | 2020-01-16 16:36 | NUR ---
HAS BEEN WITHOUT NEEDS. TELEMETRY 60 PACED PER SUPERVISOR HOUSECLEANER HUDSON.
[2020-01-16 16:38] VITALS: Ht 175.3 cm; Wt 79.5 kg
[2020-01-16 20:00] VITALS: BP 161/67
[2020-01-17] VITALS: BP 153/63
--- NOTE | 2020-01-17 01:13 | NUR ---
PT RESTING IN BED. EYES CLOSED. NO SIGNS OF DISTRESS. BREATHING EVEN AND UNLABORED. IV SITE LT AC DRESSING CLEAN DRY AND INTACT. NO SIGNS OF INFECTION OR INFULTRATION. BANDGE TO NOSE AND FOREHEAD. CLEAN DRY AND INTACT. LUNG SOUNDS CLEAR. BOWEL SOUNDS ACTIVE. WILL CONTINUE PLAN OF CARE. CALL LIGHT IN REACH. BED LOWERED AND LOCKED. BED RAILS UPX2. DAVID ALARM ON.
[2020-01-17 04:00] VITALS: BP 145/62
[2020-01-17 08:19] VITALS: BP 153/69
--- NOTE | 2020-01-17 09:52 | NUR ---
ASSESSMENT PER FLOW SHEET. PATIENT IS WITHOUT DISTRESS. MEDS ORDERED.CALL LIGHT IN REACH
[2020-01-17 12:27] VITALS: BP 152/63
--- NOTE | 2020-01-17 13:29 | NUR ---
laying 61 hr 145/62 SITTING 67 HR 133/64 STANDING 72 HR 140/58
[2020-01-17 16:37] VITALS: BP 145/61
--- NOTE | 2020-01-17 18:36 | NUR ---
IV DCD WITH CATH TIP INTACT.DISCHARGE INSTRUCTIONS,STATES UNDERSTANDING.WAITING ON RIDE HOME.
--- NOTE | 2020-01-17 18:59 | NUR ---
LEFT UNIT VIA WHEELCHAIR FOR TRANSPORT HOME
== END 2020-01-17 19:00 | disposition home or self-care (01) ==
LOC: D.ER 11:07 → D.MS 13:06 → OBSVTIME 01-17 14:30 → D.SDCHOLD 01-17 16:44 → D.MS 01-17 16:45
PROVIDERS: Emergency Medicine; ADMIT Family Medicine; ATTEND Family Medicine
DX: R55 Syncope and collapse (principal); I25.10 Atherosclerotic heart disease of native coronary artery without angina pectoris; Z95.0 Presence of cardiac pacemaker; S80.01XA Contusion of right knee, initial encounter; W19.XXXA Unspecified fall, initial encounter; S00.81XA Abrasion of other part of head, initial encounter; M19.90 Unspecified osteoarthritis, unspecified site; K21.9 Gastro-esophageal reflux disease without esophagitis

== ENCOUNTER → 2020-02-07 10:53 | Outpatient (CLI) | payer MEDICARE, OTHER ==
[2020-01-16 16:38] VITALS: BMI 25.9
[~2020-02-07 10:53] MED LIST changes: +HYDROCODON-ACE1 EAC7 PO; +ZANAFLEX4 MG PO
== END | disposition home or self-care (01) ==
LOC: D.HCCARDIO 10:53
PROVIDERS: ATTEND Internal Medicine Cardiovascular Disease
DX: I25.10 Atherosclerotic heart disease of native coronary artery without angina pectoris (principal)

== ENCOUNTER 2020-02-28 11:21 | Outpatient (CLI) | payer MEDICARE, OTHER ==
[~2020-02-28] VITALS: Ht 175.3 cm; Wt 81.8 kg
--- NOTE | ~2020-02-28 | HEMODYNAMI ---
PATIENT:NOVA RODRIGUEZ MEDICAL RECORD: [id number] : 42 LOCATION:[facility] ADMISSION DATE: 02/28/20 Generatedon:02/28/202013:38 Patient name: NOVA RODRIGUEZ Patient #: [id number] SSN: [id number] : 1940 Date of study: 02/28/2020 Page: Of Hemodynamic Procedure Report Patient Data Patient Demographics Procedure consent was obtained First Name: NOVA Gender: Male Last Name: MICHAEL : 1940 [facility] Initial: OSCAR Age: 79 year(s) Patient #: [id number] Race: SSN: [id number] Additional ID: [id number] Contact details Address: [address] [place] [address] State: [place] City: [place] Zip code: [address] Past Medical History Allergies: No known allergies Admission Admission Data Admission Date: 02/28/2020 Admission Time: 11:21 Lab Results Lab Result Date: 02/28/2020 Lab Result Time: 0:00 Biochemistry Name Units Result Min Max Creatinine mg/dl 1.1 --(--*-)-- 0.6 1.3 eGFR ml/min 69 *-(----)-- 90 120 NONAFRICAN CBC Name Units Result Min Max Hematocrit % 42.9 --(*---)-- 42 54 Hemoglobin g/dl 14.4 --(*---)-- 13.5 17.5 Procedure Procedure Types Cath Procedure Diagnostic Procedure LHC LHC w/Coronaries FFR/IVUS FFR Initial Sedation Charges Moderate Sedation up to 15 minutes PCI Procedure Coronary Stent Coronary Stent Initial Hemochron ACT Test Procedure Description Procedure Date Procedure Date: 02/28/2020 Procedure Start Time: 13:12 Procedure End Time: 13:36 Procedure Staff Name Function Colton Benton MD Performing Physician Shannan Barragan RT Monitor Chanell Hollins RT Scrub Markie Bell RN Nurse Janice Sampson RN Monitor Procedure Data Cath Procedure Fluoroscopy Diagnostic fluoroscopy Total fluoroscopy Time: 4.7 time: 4.7 min min Diagnostic fluoroscopy Total fluoroscopy dose: 692 dose: 692 mGy mGy Contrast Material Contrast Material Type Amount (ml) Isovue 300 83 Entry Location Entry Primary Successful Side Size Upsize Upsize Entry Closure Silvestre ccessful Closure Location (Fr) 1 (Fr) 2 (Fr) Remarks Device Remarks Radial Right 6 Fr Manual artery Short Compression Estimated blood loss: 10 ml Diagnostic catheters Device Type Used For End Catheter Placement DIAGNOSTIC Sod 110cm 5 Procedure Fr catheter ([id number]) Procedure Complications No complications Procedure Medications Medication Administration Route Dosage 0.9% NaCl I.V. 100 ml/hr Oxygen etCO2 Nasal cannula 2 l/min Heparin Flush Bag added to field 2 bags (1000units/500ml NS) Lidocaine 2% added to field 20 Radial Cocktail added to field 1 syringe (Verapamil 2mg/Nitro 400mcg/Heparin 1500units) Versed I.V. 2 mg Fentanyl I.V. 100 mcg Radial Cocktail I.A. 1 syringe (Verapamil 2mg/Nitro 400mcg/Heparin 1500units) Versed I.V. 2 mg Heparin Bolus I.V. 2000 units Heparin Bolus I.V. 3000 units Integrilin (Bolus I.V. 7.3 ml 2mg/ml) Integrilin (Bolus wasted 2.7 ml 2mg/ml) Plavix P.O. 600 mg Hemodynamics Rest HGB: 14.4 (g/dl) Heart Rate: 61 (bpm) Pressure Samples Time Site Value (mmHg) Purpose Heart Use Rate(bpm) 13:15 LV 82/-2,-2 Snapshot 60 Snapshots Pre Cath Intra NCS Post Cath Vital Signs Time Heart Resp SPO2 etCO2 NIBP (mmHg) Rhythm Pain Sedation Rate (ipm) (%) (mmHg) Status Level (bpm) 13:00:57 60 20 100 36.8 166/77(92) NSR 0 (11) 10(A) , No pain 13:05:21 60 22 100 40.6 158/78(92) NSR 0 (11) 10(A) , No pain 13:09:45 60 37 99 39.1 139/68(91) NSR 0 (11) 10(A) , No pain 13:14:04 59 18 100 44.4 137/64(107) NSR 0 (11) 10(A) , No pain 13:18:19 59 20 96 42.8 111/56(73) NSR 0 (11) 10(A) , No pain 13:23:19 59 17 98 40.6 129/66(82) NSR 0 (11) 10(A) , No pain 13:27:30 59 11 98 40.6 124/67(84) NSR 0 (11) 10(A) , No pain 13:31:48 59 18 99 40.6 119/54(84) NSR 0 (11) 10(A) , No pain 13:36:01 59 17 98 34.6 129/71(100) NSR 0 (11) 10(A) , No pain Medications Time Medication Route Dose Verified Delivered Reason Not es Effectiveness by by 12:59:11 0.9% NaCl I.V. 100 Markie Markie Per physician ml/hr Arabella Bell RN RN 12:59:22 Oxygen etCO2 2 l/min Markie Markie for low 02 sats Nasal Lorigan Arabella cannula RN RN 12:59:34 Heparin Flush added 2 bags Markie Markie used for Bag to Lorigan Lorigan procedure (1000units/500ml [facility] RN RN NS) 12:59:44 Lidocaine 2% added 20ml Markie Markie for local to vial Lorigan Lorigan anesthetic RN RN 12:59:53 Radial Cocktail added 1 Markie Markie used for (Verapamil to syringe Lorigan Lorigan procedure 2mg/Nitro RN RN 400mcg/Heparin 1500units) 13:12:07 Versed I.V. 2 mg Markie Markie for sedation Arabella Bell RN RN 13:12:15 Fentanyl I.V. 100 mcg Markie Markie for sedation Arabella Bell RN RN 13:15:20 Radial Cocktail I.A. 1 Markie Colton for (Verapamil syringe Lorigan Chetan vasodilation 2mg/Nitro RN 400mcg/Heparin 1500units) 13:15:29 Versed I.V. 2 mg Markie Markie for sedation Arabella Bell RN RN 13:21:49 Heparin Bolus I.V. 2,000 Markie Markie for units Lorigan Lorigan anticoagulation RN RN 13:29:17 Heparin Bolus I.V. 3,000 Markie Markie for units Lorigan Lorigan anticoagulation RN RN 13:29:35 Integrilin I.V. 7.3 ml Markie Markie for (Bolus 2mg/ml) Arabella Bell antiplatelet RN RN therapy 13:29:44 Integrilin wasted 2.7 ml Markie Markie to sharp's (Bolus 2mg/ml) Arabella Bell RN RN 13:36:09 Plavix P.O. 600 mg Markie Markie for Arabella Bell antiplatelet RN RN therapy Procedure Log Time Note 12:42:46 Informed consent obtained and on chart 12:43:36 Procedure Status Elective Heart Cath (OP). 12:43:39 Chanell Hollins RT(R) sent for patient. Start room use. 12:43:40 Time tracking: Regular hours (M-F 7:00 - 5:00) 12:43:45 Plan of Care:Hemodynamics will remain stable., Cardiac rhythm will remain stable., Comfort level will be maintained., Respiratory function will remain adequate., Patient/ family verbilizes understanding of procedure., Procedure tolerated without complication., Recovers from procedure without complications.. 12:44:07 ACC Patient presents with Stable Angina CCS Anginal Class 2--Slight limitation of ordinary activity. 12:44:20 Full Disclosure recording started 12:44:26 H&P Date Dictated: 02/28/2020 Greater than 30 days; new H&P dictated by physician. Or brief H&P completed., Emergent; H&P N/A, Within 30 days and on chart., H&P Addendum completed by physician on day of procedure. (MUST COMPLETE FOR ALL OUTPATIENTS), ER History on chart., New H&P dictated by physician.. 12:44:35 Patient allergic to No known allergies 12:44:38 Is the patient allergic to Iodine/contrast media? No. 12:44:40 Was the patient premedicated? N/A 12:44:43 Is patient on blood thinner?No 12:45:54 Patient diabetic? No. 12:45:57 If diabetic: On Metformin? N/A 12:46:53 Stress Test: yes; abnormal INFERIOR SEGMENTS 12:47:04 Lab results completed and on chart. 12:48:09 Lab Result : Creatinine 1.1 mg/dl 12:48:09 Lab Result : eGFR NONAFRICAN 69 ml/min 12:48:09 Lab Result : Hemoglobin 14.4 g/dl 12:48:09 Lab Result : Hematocrit 42.9 % 12:49:21 ACCPatient has been prescribed/administered the following anti-anginal medication within the last 2 weeks: None 12:50:58 Risk of Mortality: 0.1 12:51:00 Risk of blood transfusion: 0.5 12:51:03 Risk of BETO: 1.0 12:51:15 Patient received from Pre/Post Procedure Room to CCL 2 Alert and oriented. Tansferred to table in Supine position. 12:51:29 Patient NPO since Midnight. 12:51:39 Family unavailable. 12:51:56 Previous problem with sedation/anesthesia? No ? 12:51:57 Snore? Yes 12:52:01 Sleep apnea? Yes 12:52:03 Deviated septum? No 12:52:04 Opens mouth fully? Yes 12:52:05 Sticks out tongue? Yes 12:52:07 Airway obstruction? No ? 12:52:10 Dentures? No ? 12:52:23 Warm blankets applied, and adrienne hugger turned on for patient comfort. 12:52:24 Correct patient and procedure confirmed by team. 12:52:25 ECG and BP/O2 sat monitors applied to patient. 12:52:30 Pre-procedure instructions explained to patient. 12:52:31 Pre-op teaching completed and patient verbalized understanding. 12:52:37 ACC The patient was administered the following blood thiners within the last 24 hours: None 12:59:11 0.9% NaCl 100 ml/hr I.V. was administered by Markie Bell RN; Per physician; Verbal order read back and verified. 12:59:22 Oxygen 2 l/min etCO2 Nasal cannula was administered by Markie Bell RN; for low 02 sats; Verbal order read back and verified. 12:59:34 Baseline sample Acquired. 12:59:34 Heparin Flush Bag (1000units/500ml NS) 2 bags added to field was administered by Markie Bell RN; used for procedure; Verbal order read back and verified. 12:59:39 Vital chart was started 12:59:44 Lidocaine 2% 20ml vial added to field was administered by Markie Bell RN; for local anesthetic; Verbal order read back and verified. 12:59:47 Rhythm: paced 12:59:53 Radial Cocktail (Verapamil 2mg/Nitro 400mcg/Heparin 1500units) 1 syringe added to field was administered by Markie Bell RN; used for procedure; Verbal order read back and verified. 12:59:58 Pre procedure: right dorsailis pedis pulse 1+ Palpable, but thready & weak; easily obliterated 13:00:00 Modified Bg's test Radial < 7 seconds 13:00:04 Patient pain scale 0/10 ?. 13:00:17 IV patent on arrival in right forearm with 0.9% NaCl at [facility]. 13:00:51 Right Radial & Right Groin area was prepped with chlora-prep and draped in sterile fashion 13:00:53 Alarms reviewed by R. N. 13:00:53 Sharps counted by scrub and verified by R.N. 13:02:17 Use device set Radial Dx or PCI 13:02:20 ACIST Syringe (56556) opened to sterile field. 13:02:20 Medline Cath Pack ([id number]) opened to sterile field. 13:02:21 Bag Decanter (2002S) opened to sterile field. 13:02:22 ACIST Hand Control (90190) opened to sterile field. 13:02:22 ACIST Manifold (08255) opened to sterile field. 13:02:25 MBrace Wrist Support ([id number]) opened to sterile field. 13:02:33 EMERALD Guide Wire (204-010) opened to sterile field. 13:02:33 SHEATH 6FR RAIN (1474554) opened to sterile field. 13:10:31 --------ALL STOP TIME OUT------ 13:10:32 Final Timeout: patient, procedure, and site verified with staff and physician. All members of the team are in agreement. 13:10:33 Right Radial & Right Groin site verified by team. 13:10:37 Fire Safety Assessment: A--An alcohol-based skin anteseptic being used preoperatively., C--Open oxygen or nitrous oxide is being used., D--An ESU, laser, or fiber-optic light is being used. 13:10:41 Physical assessment completed. ASA score P 2 - A patient with mild systemic disease as per Colton Benton MD. 13:10:44 2) 60-89 Mildly reduced kidney function, and other findings (as for stage 1) point to kidney disease. 13:10:49 Maximum allowable contrast dose (3.7 X eGFR X 0.75)191 ml. 13:10:52 Sedation plan: IV Moderate Sedation Medication:Versed, Fentanyl 13:12:07 Versed 2 mg I.V. was administered by Markie Bell RN; for sedation; Verbal order read back and verified. 13:12:15 Fentanyl 100 mcg I.V. was administered by Markie Bell RN; for sedation; Verbal order read back and verified. 13:12:22 Procedure started. 13:12:59 Local anesthetic to right radial artery with Lidocaine 2% by Colton Benton MD.INITIAL ACCESS ONLY 13:13:48 A 6 Fr Short sheath was inserted into the Right Radial artery 13:14:13 A DIAGNOSTIC Sod 110cm 5 Fr catheter (016594) was advanced over the wire and used for Procedure. 13:15:20 Radial Cocktail (Verapamil 2mg/Nitro 400mcg/Heparin 1500units) 1 syringe I.A. was administered by Colton Benton MD; for vasodilation; Verbal order read back and verified. 13:15:29 Versed 2 mg I.V. was administered by Markie Bell RN; for sedation; Verbal order read back and verified. 13:16:02 LV gram done using SOLOMON 13:16:07 EF : 55 % 13:16:10 LV hemodynamics recorded. 13:16:14 Injector settings: Ml/sec: 10, Volume: 20, 13:16:32 LCA angiography performed. 13:17:46 RCA angiography performed. 13:18:04 ACCDominant side:Right 13:18:11 Catheter removed. 13:18:56 Proceeding to intervention. 13:19:[address] [facility] PCI 13:19:18 GUIDE 6FR XBLAD 3.5 catheter ([id number]) opened to sterile field. 13:19:25 INFLATOR Merit BasixCompak (XH2456) opened to sterile field. 13:20:07 [place] Verrata Plus pressure wire (30759A) opened to sterile field. 13:21:36 ACC Pre-intervention RAMIRO Flow is 3. 13:21:49 Heparin Bolus 2,000 units I.V. was administered by Markie Lorigan RN; for anticoagulation; Verbal order read back and verified. 13:21:52 6 Fr XBLAD 3.5 guide catheter was inserted over the wire 13:21:56 FFR/IFR wire advanced. 13:26:56 Wire advanced across lesion. 13:27:03 pLAD lesion measured at 0.82 with IFR 13:28:08 Pre PCI Site: [place] pLAD has 80% stenosis. 13:28:26 IFR WIRE USED FOR GUIDE WIRE 13:29:17 Heparin Bolus 3,000 units I.V. was administered by Markie Bell RN; for anticoagulation; Verbal order read back and verified. 13:29:26 Place stent Inflation Number: 1 A DEDE RX 3.0 x 15 stent ([id number]) was prepped and advanced across the Prox LAD . The stent was deployed at 14 SIVA for 0:16 (min:sec) . 13:29:35 Integrilin (Bolus 2mg/ml) 7.3 ml I.V. was administered by Markie Bell RN; for antiplatelet therapy; Verbal order read back and verified. 13:29:44 Integrilin (Bolus 2mg/ml) 2.7 ml wasted was administered by Markie Bell RN; to sharp's; Verbal order read back and verified. 13:30:19 ACC Post-intervention RAMIRO Flow is 3. 13:30:25 Post PCI Site: [place] pLAD has 0% stenosis. 13:30:35 Stent catheter was removed intact over wire. 13:30:37 Wire removed. 13:30:38 Guide catheter removed. 13:31:45 Sheath removed intact; hemostasis achieved with Manual Compression to the Right Radial artery. 13:31:51 Procedure ended.(Physican Out) 13:32:07 Fluoroscopy time 04.70 minutes. 13:32:15 Fluoroscopy dose: 692 mGy 13:32:15 Flurop Dose total: 692 13:32:19 Dose Area Product 05184 mGy/cm. 13:32:33 Contrast amount:Isovue 300 83ml. 13:32:46 ZEPHYR REGULAR TR BAND (298278) opened to sterile field. 13:32:56 Maximum allowable dose exceeded? No. 13:32:58 Sharps counted by scrub and verified by R.N. 13:33:01 Mustang band inflated with 10cc of air. 13:33:03 Insertion/operative site no bleeding no hematoma. 13:33:16 Post right radial artery:stable, clean and dry 13:33:25 Post Procedure Pulses reassessed and unchanged 13:33:30 Post procedure: right radial pulse 1+ Palpable, but thready & weak; easily obliterated. 13:33:33 Post-procedure physical assessment completed. ASA score P 2 - A patient with mild systemic disease as per Colton Benton MD. 13:33:38 Post procedure rhythm: unchanged., paced 13:33:42 Estimated blood loss: 10 ml 13:33:43 Post procedure instruction explained to patient.Patient verbalizes understanding. 13:33:44 Patient needs reinforcement of post procedure teaching. 13:34:57 Procedure type changed to Cath procedure, Diagnostic procedure, LHC, C w/Coronaries, FFR/IVUS, FFR Initial, Sedation Charges, Moderate Sedation up to 15 minutes, PCI procedure, Coronary Stent, Coronary Stent Initial, Hemochron ACT Test 13:35:40 Procedure and supply charges have been captured, reviewed, submitted and are correct. 13:35:47 Procedure Complication : No complications 13:35:49 Vital chart was stopped 13:35:53 [facility] Findings: MVD- PCI performed (see procedure note) 13:35:57 Operative report dictated upon procedure completion. 13:35:57 See physician's report for complete and final results. 13:35:59 Report given to Pre/Post Procedure Room. 13:36:02 Patient transfered to Pre/Post Procedure Room with Stretcher. 13:36:05 Procedure ended. 13:36:05 Full Disclosure recording stopped 13:36:09 Plavix 600 mg P.O. was administered by Markie Bell RN; for antiplatelet therapy; Verbal order read back and verified. 13:36:14 ACC-PCI Only Patient was given prescriptions, or instructed by Colton Benton MD to start/continue the following medications upon discharge: Plavix 13:36:16 End room use (Document Last) 13:36:47 ACT drawn and resulted at 343 seconds. (normal therapeutic range 180-240 seconds). Intervention Summary Intervention Notes Time ActionType Lesion and Equipment Used Action# Pressure Duration Attributes 13:29:[address] stent Prox LAD DEDE RX 3.0 x 1 14 00:16 15 stent ([id number]) Device Usage Item Name Manufacture Quantity Catalog Hospital Part Current Minimal Lot# / Number Charge Number Stock Stock Serial# Code ACIST Syringe Acist 1 23301 984784 309453 894998 20 (44620) Medical Systems Inc Medline Cath Medline 1 [id number] 854824 21022 710788 5 Pack ([id number]) Bag Decanter Microtek 1 2002S 766863 71300 658740 5 (2001S) Medical Inc. ACIST Hand Acist 1 37770 493062 703934 595436 5 Control Medical (30757) Systems Inc ACIST Manifold Acist 1 73106 739290 099460 100987 5 (77927) Medical Systems Inc MBrace Wrist Advanced 1 140-0250-00 428265 36762 983390 5 Support Vascular (050840053) Dynamics EMERALD Guide Cardinal 1 502-455 155602 411676 629060 5 Wire (502455) Health SHEATH 6FR Cardinal 1 2488259 496419 8916926 050147 5 RAIN (0262726) Health DIAGNOSTIC Terumo 1 405013 728835 374987 318596 5 Sod 110cm 5 Fr catheter (663473) GUIDE 6FR Cardinal 1 [id number] 517431 645500 817160 10 XBLAD 3.5 Health catheter (30686893) INFLATOR Merit Merit 1 WB2184 510146 633470 218800 15 [facility] (BK2420) [place] 1 81415T 765103 [id number] 166446 5 Verrata Plus pressure wire (42176Q) DEDE RX 3.0 x Medtronic 1 [id number] 222173 8781013 931451 5 [id number] 15 stent ([id number]) ZEPHYR REGULAR Cardinal 1 109311 400125 6187639 102582 5 ActiveReplay (861926) Signature Audit [place] Stage Time Signature Unsigned Intra-Procedure 02/28/2020 Janice Sampson 1:37:08 PM RN Intra-Procedure 02/28/2020 Markie 1:37:29 PM Arabella RN Intra-Procedure 02/28/2020 Colton Colbert 1:38:21 PM Alex RUBALCAVA Signatures Performing Physician : Signature : Colton Benton MD Date : Time : Monitor : Shnanan Signature : Nannemann RT Date : Time : Nurse : Markie Lorigan Signature : RN Date : Time : Monitor : Janice Adrián Signature : RN Date : Time : [facility] [address] [place], [place] [address] [address]
[2020-02-28 11:51] VITALS: BP 160/82; Ht 175.3 cm; Wt 81.8 kg
[2020-02-28 12:35] LABS: BASOPHILS 0.4 % (0-2); EOSINOPHILS 0.7 % (0-7); HEMATOCRIT 42.9 % (42.0-54.0); HEMOGLOBIN 14.4 g/dL (13.5-17.5); IMMATURE GRANULOCYTES 0.4 % (0-5); LYMPHOCYTES 24.7 % (15-50); MCH 31.8 pg (26.0-34.0); MCHC 33.6 g/dL (31.0-37.0); MCV 94.7 fL (80.0-100.0); MEAN PLATELET VOLUME 9.4 fL (7.4-10.4); MONOCYTES 6.7 % (2-11); NEUTROPHILS 67.1 % (40-80); PLATELET COUNT 130 10x3/uL (130-400); RBC 4.53 10x6/uL (4.20-6.10); RDW 12.6 % (11.5-14.5); WBC 5.3 10x3/uL (4.8-10.8)
[2020-02-28 12:36] LABS: ANION GAP 8.3 mmol/L (8-16); CALCIUM 8.5 mg/dL (8.5-10.1); CARBON DIOXIDE 28.5 mmol/L (21.0-32.0); CHOL - HDL RATIO 3.1 ratio (2.3-4.9); CREATININE - SERUM 1.1 mg/dL (0.6-1.3); LDL-HDL RATIO 1.9 ratio (1.5-3.5); POTASSIUM - SERUM 4.8 mmol/L (3.5-5.1)
--- NOTE | 2020-02-28 13:48 | NUR ---
PT ARRIVED BY STRETCHER. PLACED ON MONITORS. ASSESSMENT COMPLETED. VSS AT THIS TIME. CALL LIGHT WITHIN REACH. DR. BROCK SPOKE WITH PT'S ON PHONE AND UPDATED HER.
--- NOTE | 2020-02-28 14:03 | NUR ---
PT RESTING COMFORTABLY. VSS. RIGHT WRIST Z BAND IN PLACE. NO BLEEDING/HEMATOMA NOTED. CALL LIGHT WITHIN REACH.
[2020-02-28] MEDS ORDERED: PLAVIX75 MG PO (14:24)
[2020-02-28] MEDS ORDERED: BAYER CHEWABLE81 MG PO (14:24)
--- NOTE | 2020-02-28 14:34 | NUR ---
PT SITTING UP IN BED. ALERT. SET UP WITH SANDWICH TRAY AND DRINK AT THIS TIME. CALL LIGHT WITHIN REACH. VSS. DENIES NAUSEA/PAIN. DR. BROCK ROUNDED AND SPOKE WITH PT.
--- NOTE | 2020-02-28 15:00 | NUR ---
RIGHT WRIST Z BAND IN PLACE. NO BLEEDING/HEMATOMA NOTED. VSS. PT RESTING COMFORTABLY. AT THIS TIME. VOIDED APPROX 200cc OF CLEAR YELLOW URINE IN URINAL WITHOUT DIFFICULTY.
--- NOTE | 2020-02-28 15:30 | NUR ---
VSS. RIGHT WRIST Z BAND IN PLACE. NO BLEEDING/HEMATOMA NOTED. CALL LIGHT WITHIN REACH. NO NEEDS AT THIS TIME.
--- NOTE | 2020-02-28 16:00 | NUR ---
RIGHT WRIST Z BAND IN PLACE. NO BLEEDING/HEMATOMA NOTED. CALL LIGHT WITHIN REACH. VSS. 2cc OF AIR REMOVED FROM Z BAND. TOLERATED WELL.
--- NOTE | 2020-02-28 16:15 | NUR ---
3cc OF AIR REMOVED FROM Z BAND. TOLERATED WELL. NO BLEEDING/HEMATOMA NOTED.
--- NOTE | 2020-02-28 16:30 | NUR ---
5cc OF AIR REMOVED FROM Z BAND. NO BLEEDING/HEMATOMA NOTED. TOLERATED WELL. VSS AT THIS TIME. CALL LIGHT WITHIN REACH.
--- NOTE | 2020-02-28 16:45 | NUR ---
Z BAND REMOVED AND DRESSING APPLIED. NO BLEEDING/HEMATOMA NOTED. RIGHT WRIST BRACE IN PLACE.
--- NOTE | 2020-02-28 16:55 | NUR ---
DISCUSSED DISCHARGE INSTRUCTIONS WITH PT. HE VOICED UNDERSTANDING. PIV D/C'D WITH CATH TIP INTACT. TOLERATED WELL. VSS AT THIS TIME. PT INSTRUCTED TO GET UP AND DRESSED AT THIS TIME. NO ASSISTANCE NEEDED.
--- NOTE | 2020-02-28 17:00 | NUR ---
PT AMBULATED TO RESTROOM. VOIDED WITHOUT DIFFICULTY. STEADY GAIT NOTED. PT TAKEN DOWN TO VEHICLE BY WHEELCHAIR. NO S/S OF DISTRESS NOTED. ALL BELONGINGS AND PAPERWORK IN HAND. SPOKE WITH HIS AND UPDATED HER NO DISCHARGE INSTRUCTIONS AND STARTING PLAVIX AND BABY ASA. SHE VOICED UNDERSTANDING.
--- NOTE | 2020-03-03 07:56 | OP ---
PATIENT NAME: NOVA RODRIGUEZ MEDICAL RECORD: [id number] :42 LOCATION:D.CAT ADMISSION DATE: SURGEON: GIULIA BROCK MD DATE OF OPERATION: PROCEDURE: Left heart catheterization, plus IFR wire, plus ONLINE MERCHANDISING SPECIALIST stenting of the LAD, right radial approach. CATHETERS: Radial sheath, [place] catheter. The procedure was well tolerated. The patient was returned to earl, sheath removed, and TR band was placed. FINDINGS: Left ventriculography in 30-degree SOLOMON view: Normal wall motion and normal systolic function. CORONARY ANATOMY: LEFT MAIN: Left main has about 80% stenosis, it is confirmed via IFR wire with significant stenosis by IFR wire. CIRCUMFLEX: Free of disease. RIGHT CORONARY ARTERY: Dominant artery, gives rise to PDA, free of disease. IMPRESSION: Single-vessel disease involving the LAD. PLAN: Intervention momentarily. DESCRIPTION OF PROCEDURE: Using indwelling sheath, XB LAD guiding catheter provided excellent guide catheter support. We also used the IFR wires or guidewire as well and we placed a 3.0 x 15 mm [place] drug-eluting stent up to 14 atmospheres. Final angiography shows excellent resolution of 80% stenosis, no significant residual. RAMIRO flow was 3 throughout the procedure. Heparin and Integrilin were used during the case. Sheath was closed with ExoSeal device. Plavix was loaded in the lab. TRANSINT:[id number] Voice Confirmation ID: [id number] DOCUMENT ID: [id number] GIULIA BROCK MD at 0756 CC: [id number] DICTATION DATE: 02/28/20 1339 FURNACE MASON: 02/28/20 1650 DEP CLI 02/28/20 [facility] [address] [place] [address]
== END 2020-02-28 17:00 | disposition home or self-care (01) ==
LOC: D.CATH 11:21
PROVIDERS: ATTEND Internal Medicine Interventional Cardiology
DX: I25.119 Atherosclerotic heart disease of native coronary artery with unspecified angina pectoris (principal); R00.1 Bradycardia, unspecified; I10 Essential (primary) hypertension

== ENCOUNTER → 2020-12-25 07:37 | Outpatient (CLI) | payer MEDICARE, OTHER ==
[2020-02-28 11:51] VITALS: BMI 26.6
[~2020-12-25 07:37] MED LIST changes: +BAYER CHEWABLE81 MG PO; +PLAVIX75 MG PO
== END | disposition home or self-care (01) ==
LOC: D.CN 07:37
PROVIDERS: ATTEND Psychiatry & Neurology Neurology
DX: R41.9 Unspecified symptoms and signs involving cognitive functions and awareness (principal)